=== PATIENT | female | born 2000 | race Hispanic/Latino ===

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

== ENCOUNTER 2022-01-08 14:56 | Outpatient (CLI) | payer OTHER, SELFPAY ==
[2022-01-08 15:32] LABS: Basophils Percent Auto 0.6 % (0.2-1.2); Eosinophils Absolute Auto 0.1 K/mm3 (0-0.3); Hematocrit 44.3 % (37.0-47.0); Hemoglobin 14.6 g/dL (12.0-15.0); Immature Granulocyte Absolute 0.02 K/mm3 (0.00-0.031); Immature Granulocyte Percent A 0.3 % (0-0.5); Lymphocytes Absolute Auto 1.74 K/mm3 (0.9-3.2); Lymphocytes Percent Auto 26.5 % (18.3-44.2); Mean Corpuscular Hemoglobin 28.7 pg (26-34); Mean Corpuscular Volume 87.2 fl (80-100); Mean Platelet Volume 10.2 fl (7.4-10.4); Monocytes Absolute Auto 0.4 K/mm3 (0.1-0.6); Monocytes Percent Auto 6.4 % (2.6-8.5); Neutrophils Absolute Auto 4.2 K/mm3 (1.3-6.7); Neutrophils Percent Auto 64.2 % (45.5-73.1); Platelet Count Result 292 k/mm3 (150-375); Red Blood Count 5.08 M/mm3 (4.2-5.4); Red Cell Distribution Width 12.1 % (11.5-14.5); White Blood Count 6.6 K/mm3 (4.5-10.0)
[2022-01-08 15:42] LABS: Alanine Aminotransferase 14 U/L (4-35); Albumin Level 4.4 g/dL (3.5-5.1); Alkaline Phosphatase 53 U/L (38-126); Anion Gap 8 mmol/L (8-16); Aspartate Amino Transferase 22 U/L (14-36); Bilirubin,Total 0.6 mg/dL (0.2-1.3); Blood Urea Nitrogen 14 mg/dL (7-17); Calcium 9.1 mg/dL (8.4-10.2); Carbon Dioxide 25 mmol/L (22-30); Chloride 106 mmol/L (98-107); Cholesterol 177 mg/dL (0-200); Estimated Glomerular Filt Rate > 60; Glucose 90 mg/dL (65-110); HDL Direct 64 mg/dL; Potassium 4.3 mmol/L (3.4-5.0); Sodium 139 mmol/L (137-145); Triglycerides 54 mg/dL (<150)
[2022-01-08 15:55] LABS: LDL Cholesterol Direct 82 mg/dL
[2022-01-08 16:11] LABS: Hemoglobin A1C 4.5 % (<5.7)
[2022-01-08 16:15] LABS: Vitamin D 25 Hydroxy 24.4 ng/mL
== END 2022-01-08 14:57 | disposition home or self-care (01) ==
LOC: ANHLAB 15:02
PROVIDERS: PCP Family Medicine
DX: Z13.228 Encounter for screening for other metabolic disorders (principal); Z13.0 Encounter for screening for diseases of the blood and blood-forming organs and certain disorders involving the immune mechanism; Z13.220 Encounter for screening for lipoid disorders; Z13.1 Encounter for screening for diabetes mellitus; E55.9 Vitamin D deficiency, unspecified; E61.1 Iron deficiency
CPT/HCPCS: 36415; 80053; 80061; 82306; 82728; 83036; 85025

== ENCOUNTER → 2022-03-17 12:33 | Outpatient (CLI) | payer OTHER, SELFPAY ==
--- NOTE | ~2022-03-17 | US_ITS ---
EXAMINATION: US transvaginal DATE: 03/17/2022 13:04 INDICATION: Verify IUD placement Comparison:No prior studies for comparison. TECHNIQUE: Multiple transabdominal and endovaginal sonographic images of the pelvis performed. FINDINGS: The uterus measures 5.4 x 2.2 x 3.1 cm. IUD is low lying, located in the cervix. The endome trial complex measures 4 mm. The right ovary measures 1.9 x 1.3 x 1.7 cm and the left ovary measures 2.7 x 1.4 x 2.3 cm. There ar e small follicles in each ovary. Normal doppler signal in both ovaries. There is no free fluid in the pelvis. There are no abnormal masses seen on either side. IMPRESSION: 1. Low-lying IUD placement in the cervix. Reviewed, dictated and finalized at location B.
== END ==
PROVIDERS: PCP Nurse Practitioner; Visit Provider Nurse Practitioner
DX: Z30.431 Encounter for routine checking of intrauterine contraceptive device (principal)
CPT/HCPCS: 76830

== ENCOUNTER 2022-05-24 13:47 | Emergency (ER) | payer OTHER, SELFPAY ==
--- NOTE | ~2022-05-24 | XR_ITS ---
XR hand RT min 3V 05/24/2022 15:45 INDICATION: Right hand pain PROCEDURE: 3 views right hand COMPARISON: No prior studies for comparison. FINDINGS: Fracture, dislocation or subluxation is not identified. The soft tissues appear within norm al limits. No foreign bodies are identified. IMPRESSION: 1: NO ACUTE BONE OR JOINT ABNORMALITY IDENTIFIED. Reviewed, dictated and finalized at location A.
--- NOTE | 2022-05-24 14:35 | ED.UPPEXIN ---
HPI - Extremity Injury (Upper) General Chief Complaint: Extremity Injury, Upper <Ron Aggarwal APRN - Last Filed: 05/24/22 17:06> Stated Complaint: rt hand pain <Ron Aggarwal APRN - Last Filed: 05/24/22 17:06> Time Seen by Provider: 05/24/22 14:36 <Ron Aggarwal APRN - Last Filed: 05/24/22 17:06> Source: patient <Ron Aggarwal APRN - Last Filed: 05/24/22 17:06> RN notes reviewed and old records reviewed <Rebeca [place] APRN - Last Filed: 05/24/22 18:22> Mode of arrival: ambulatory <Ron Aggarwal APRN - Last Filed: 05/24/22 17:06> Limitations: no limitations <Ron Aggarwal APRN - Last Filed: 05/24/22 17:06> History of Present Illness HPI narrative: Ms. Das is a 22-year-old female patient presenting to the clinic today with complaints of right hand pain. She reports she punched a wall 2 days ago because she was angry. She reports she is having pain over the right fifth metatarsal/knuckle <Ron Aggarwal APRN - Last Filed: 05/24/22 17:06> Related Data Home Medications: Home Medications Medication Instructions Recorded Confirmed escitalopram oxalate 10 mg tablet 10 mg PO DAILY 05/24/22 05/24/22 etonogestrel 68 mg subdermal 1 implant subdermal ONCE 05/24/22 05/24/22 implant (Nexplanon) <Ron Aggarwal APRN - Last Filed: 05/24/22 17:06> Allergies/Adverse Reactions: Allergies Allergy/AdvReac Type Severity Reaction Status Date / Time No Known Allergies Allergy Verified 05/24/22 14:48 <Ron Aggarwal APRN - Last Filed: 05/24/22 17:06> Review of Systems Review of Systems: Pertinent positives per HPI. Patient denies any fever, chills, rash, headache, visual changes, dizziness, cough, runny nose, sore throat, shortness of breath, chest pain, palpitations, nausea, vomiting, diarrhea, constipation, abdominal pain, or any urinary issues. <Ron Aggarwal APRN - Last Filed: 05/24/22 17:06> [facility] Past Medical History Medical History: Medical History Anxiety Depression Left wrist fracture Seasonal allergies <Ron Aggarwal APRN - Last Filed: 05/24/22 17:06> Surgical History Surgical History: Surgical History History of tonsillectomy <Ron Aggarwal APRN - Last Filed: 05/24/22 17:06> Social History Social History: Social History Smoking status: Never smoker Gender identity (if verbalized by the patient): Female <Ron Aggarwal APRN - Last Filed: 05/24/22 17:06> Comments At the time of my signature, I reviewed and agree with the nursing past medical, surgical, social, and family history. There is no relevant family history pertinent to the patient complaint. <Ron Aggarwal APRN - Last Filed: 05/24/22 17:06> Exam Narrative: General: Well-developed, well nourished, in no apparent distress Head: Normocephalic, atraumatic. Cardio: Regular rate and rhythm, s1 and s2 normal, no murmur appreciated. Resp: Clear to auscultation bilaterally, no rhonchi, rales, wheezing or rubs. Musculoskeletal: No deformity, mildly tender to palpation over the fifth knuckle (PIP JOINT) of the right hand, grossly normal range of motion, muscle strength strong and equal, peripheral pulse strong, no edema, no cyanosis, normal gait and station <Ron Aggarwal APRN - Last Filed: 05/24/22 17:06> Course Course Emergency Course: Portions of this record may have been created with voice recognition software. <Ron Aggarwal, [employer] - Last Filed: 05/24/22 17:06> Portions of this record may have been created with voice recognition software. Discharge instructions reviewed with patient and mom, as well as provided in writing p
[2022-05-24 15:00] VITALS: BP 115/64; PULSE 69; RESP 14; TEMP 36.6; O2SAT 100
--- NOTE | 2022-05-24 15:17 | PC.NURSE ---
Pt went to [facility] for x-ray, nurse report given to KATY Mckay.
--- NOTE | 2022-05-24 16:13 | PC.NURSE ---
1536 Patient arrived from [place] for xray of the right hand. Patient awake, and alert-complains of tenderness at 5th MCP joint right hand. No swelling or ecchymosis noted.
== END 2022-05-24 16:12 | disposition home or self-care (01) ==
PROVIDERS: Emergency Provider Nurse Practitioner Family
DX: S60.051A Contusion of right little finger without damage to nail, initial encounter (principal); S60.221A Contusion of right hand, initial encounter; W22.09XA Striking against other stationary object, initial encounter; F41.9 Anxiety disorder, unspecified; F32.A Depression, unspecified
CPT/HCPCS: 73130; 99213; G0463

== ENCOUNTER 2023-03-19 09:38 | Outpatient (CLI) | payer OTHER, SELFPAY ==
[2023-03-19 09:56] LABS: Basophils Absolute Auto 0.1 K/mm3 (0.0-0.1); Basophils Percent Auto 0.9 % (0.2-1.2); Eosinophils Absolute Auto 0.2 K/mm3 (0-0.3); Eosinophils Percent Auto 2.8 % (0-4.4); Hematocrit 46.6 % (37.0-47.0); Hemoglobin 15.1 g/dL (12.0-15.0); Immature Granulocyte Absolute 0.03 K/mm3 (0.00-0.031); Immature Granulocyte Percent A 0.4 % (0-0.5); Lymphocytes Absolute Auto 2.61 K/mm3 (0.9-3.2); Lymphocytes Percent Auto 33.6 % (18.3-44.2); Mean Corpuscular HGB Conc 32.4 g/dl (32-36); Mean Corpuscular Hemoglobin 28.5 pg (26-34); Mean Corpuscular Volume 87.9 fl (80-100); Mean Platelet Volume 10.2 fl (7.4-10.4); Monocytes Absolute Auto 0.6 K/mm3 (0.1-0.6); Monocytes Percent Auto 8.1 % (2.6-8.5); Neutrophils Absolute Auto 4.2 K/mm3 (1.3-6.7); Neutrophils Percent Auto 54.2 % (45.5-73.1); Platelet Count Result 302 k/mm3 (150-375); Red Cell Distribution Width 12.5 % (11.5-14.5); White Blood Count 7.8 K/mm3 (4.5-10.0)
[2023-03-19 10:11] LABS: Alanine Aminotransferase 26 U/L (6-35); Albumin Level 4.7 g/dL (3.5-5.1); Alkaline Phosphatase 66 U/L (38-126); Anion Gap 7 mmol/L (8-16); Aspartate Amino Transferase 31 U/L (14-36); Bilirubin,Total 0.7 mg/dL (0.2-1.3); Blood Urea Nitrogen 12 mg/dL (7-17); Calcium 9.1 mg/dL (8.4-10.2); Carbon Dioxide 26 mmol/L (22-30); Chloride 105 mmol/L (98-107); Estimated Glomerular Filt Rate > 60; Glucose 92 mg/dL (65-110); Potassium 3.8 mmol/L (3.4-5.0); Sodium 138 mmol/L (137-145)
[2023-03-19 10:36] LABS: Free T4 Free Thyroxine 1.12 ng/mL (0.78-2.19)
[2023-03-19 10:55] LABS: Hemoglobin A1C 4.8 % (<5.7)
[2023-03-25 02:40] LABS: Thyroid Peroxidase Antibodies 1 IU/mL (<9)
== END 2023-03-19 09:39 | disposition home or self-care (01) ==
LOC: ANHLAB 09:39
PROVIDERS: PCP Family Medicine; Visit Provider Family Medicine
DX: U09.9 Post COVID-19 condition, unspecified (principal); E04.9 Nontoxic goiter, unspecified; R63.5 Abnormal weight gain; R53.82 Chronic fatigue, unspecified; Z83.3 Family history of diabetes mellitus
CPT/HCPCS: 36415; 80053; 83036; 84439; 84443; 84480; 85025; 86376

== ENCOUNTER 2023-10-01 11:48 | Emergency (ER) | payer OTHER, SELFPAY ==
[2023-10-01 12:01] VITALS: BP 105/73; PULSE 85; RESP 18; TEMP 36.4; O2SAT 100
--- NOTE | 2023-10-01 12:54 | ED.URI ---
HPI - URI/Sore Throat General Chief Complaint: Upper Respiratory Infection Stated Complaint: Sore Throat Time Seen by Provider: 10/01/23 12:46 Source: patient and RN notes reviewed Mode of arrival: ambulatory Limitations: no limitations History of Present Illness HPI Narrative: Patient presents today complaining of sore throat, headache, body aches, sweats, chills since yesterday. Denies cough. She has been taking DayQuil and NyQuil with relief and currently rates her pain 7/10. States that she had COVID a few weeks ago that was contracted from her mother. Related Data Home Medications Medication Instructions Recorded Confirmed duloxetine 30 mg capsule,delayed 30 mg PO DAILY 10/01/23 10/01/23 release Allergies Allergy/AdvReac Type Severity Reaction Status Date / Time No Known Allergies Allergy Verified 10/01/23 12:01 Review of Systems Review of Systems: CONSTITUTIONAL: + body aches, chills, sweats EYES: Denies visual changes, redness, or discharge. ENT: Denies rhinorrhea, congestion, or otalgia.+ sore throat CARDIOVASCULAR: Denies chest pain, palpitations, or edema. RESPIRATORY: Denies cough or dyspnea. GASTROINTESTINAL: Denies abdominal pain, nausea, vomiting, or diarrhea. GENITOURINARY: Denies dysuria or hematuria. SKIN: Denies rash, itching, or wounds. MUSCULOSKELETAL: Denies back pain, joint pain, or myalgia. NEUROLOGIC: Denies numbness, tingling, or weakness.+ headache PSYCH: Denies depression or anxiety. PMFSH Past Medical History Medical History Acute cholecystitis due to biliary calculus Anxiety Depression Left wrist fracture Seasonal allergies Surgical History Surgical History History of cholecystectomy History of tonsillectomy Family History Family History Other Asthma Cancer Diabetes mellitus Hypertension Social History Social History Social History: Single Smoking status: Never smoker Second hand tobacco smoke exposure: No Alcohol intake: never Substance use: current Substance use type: marijuana Lack of Transportation: No Lack of Food: Never True Current Housing: I Have Housing Concerned About Future Housing: No Difficulty Paying Gas/Electric Bills: No Difficulty Paying for Meds: No Currently Unemployed: YES Education: Decline to Answer Difficulty w/ Childcare or Family Care: No Living arrangements: with family Occupation/Education: student Gender identity (if verbalized by the patient): Female Sexual Orientation (if Verbalized by the Patient): Straight or Heterosexual Comments At time of signature, I have reviewed and agree with nursing past medical, surgical, social and family history unless otherwise noted. Please see nursing chart for further information. There is no relevant family history pertinent to the presenting complaint Exam Narrative: GENERAL: Well-appearing, well-nourished, and in no acute distress. HEAD: Normocephalic, atraumatic. EYES: EOMI. No redness or drainage. Conjunctivae normal. ENT: Mucous membranes pink and moist. Nares clear. No rhinorrhea. TMs normal bilaterally. Throat severely erythematous posteriorly without edema or exudate. Uvula midline. NECK: Normal AROM. Supple. No lymphadenopathy. CHEST: No respiratory distress. Clear to auscultation. HEART: Regular rate and rhythm. No murmur appreciated. EXTREMITIES: Normal range of motion. No edema. SKIN: Warm, dry, no rash. Capillary refill normal. Normal skin turgor. NEURO: No focal deficits. Alert and oriented x3. Gait steady. PSYCH: Normal affect. No signs of depression or anxiety. Course Course Level of Care: Express Care Visit Vital Signs Vital signs: Vital Signs Temperature 97.
== END 2023-10-01 13:05 | disposition home or self-care (01) ==
PROVIDERS: Emergency Provider Nurse Practitioner; PCP Family Medicine
DX: J06.9 Acute upper respiratory infection, unspecified (principal); F41.9 Anxiety disorder, unspecified; F32.A Depression, unspecified
CPT/HCPCS: 87081; 87880; 99213; G0463

== ENCOUNTER 2023-11-22 11:13 | Outpatient (CLI) | payer OTHER, SELFPAY ==
[2023-11-22 12:26] LABS: Hemoglobin A1C 4.9 % (<5.7)
[2023-11-22 12:43] LABS: Free T4 Free Thyroxine 1.03 ng/mL (0.78-2.19)
[2023-11-26 03:56] LABS: DHEA-Sulfate 221 mcg/dL (51-321)
[2023-11-26 07:08] LABS: Insulin Level Total 4.5 uIU/mL (<=18.4); Prolactin 12.7 ng/mL (***)
[2023-11-29 12:06] LABS: Testosterone Free 5.4 pg/mL (0.2-5.0)
== END 2023-11-22 11:14 | disposition home or self-care (01) ==
LOC: ANHLAB 11:16
PROVIDERS: PCP Family Medicine; Visit Provider Nurse Practitioner
DX: N92.6 Irregular menstruation, unspecified (principal)
CPT/HCPCS: 36415; 82627; 83036; 83498; 83525; 84146; 84402; 84439; 84443

== ENCOUNTER 2024-01-27 13:52 | Outpatient (CLI) | payer OTHER, SELFPAY ==
[2024-01-27 14:38] LABS: Alanine Aminotransferase 17 U/L (6-35); Albumin Level 4.4 g/dL (3.5-5.1); Alkaline Phosphatase 68 U/L (38-126); Anion Gap 6 mmol/L (4-12); Aspartate Amino Transferase 25 U/L (14-36); Bilirubin,Total 0.7 mg/dL (0.2-1.3); Blood Urea Nitrogen 9 mg/dL (7-17); Calcium 9.4 mg/dL (8.4-10.2); Carbon Dioxide 26 mmol/L (22-30); Chloride 105 mmol/L (98-107); Estimated Glomerular Filt Rate > 60; Glucose 92 mg/dL (65-110); Potassium 4.1 mmol/L (3.4-5.0); Sodium 137 mmol/L (137-145)
== END 2024-01-27 13:53 | disposition home or self-care (01) ==
LOC: ANHLAB 13:56
PROVIDERS: PCP Family Medicine; Visit Provider Nurse Practitioner
DX: Z13.9 Encounter for screening, unspecified (principal)
CPT/HCPCS: 36415; 80053

== ENCOUNTER 2024-02-18 15:44 | Emergency (ER) | payer OTHER, SELFPAY ==
--- NOTE | ~2024-02-18 | CT_ITS ---
EXAMINATION: CT abdomen pelvis w con DATE: 02/18/2024 18:29 INDICATION: Abdominal pain and vomiting TECHNIQUE: Computed tomography (CT) of the abdomen and pelvis was performed with 100 mL Omnipaque-350 intravenous contrast. Automated exposure control and iterative reconstruction technique were employe d. The dose-length product was 477.20 mGy-cm. COMPARISON: None FINDINGS: Lung bases are clear. Heart size is normal. No pericardial or pleural effusion. Again seen is a regio n of focal hepatic steatosis at the ligamentum teres. Cholecystectomy clips the gallbladder fossa. Sp colleen, pancreas, bilateral adrenal glands and kidneys are normal. There is fatty infiltration of the c olonic wall likely related to patient body habitus. Small bowel and appendix are normal. 2.6 cm right ovarian cyst. Left ovary, uterus and bladder are unremarkable. Minimal likely physiologic free fluid at the cul-de-sac. No pathologically enlarged abdominal or pelvic lymphadenopathy. Bones are unremar kable. IMPRESSION: 1. 2.5 cm right ovarian cyst and minimal likely physiologic free fluid in the cul-de-sac. No acute in tra-abdominal/pelvic process. Reviewed, dictated and finalized at location A. IMPRESSION: 1. 2.5 cm right ovarian cyst and minimal likely physiologic free fluid in the c ul-de-sac. No acute intra-abdominal/pelvic process.
[2024-02-18 15:54] VITALS: BP 115/71; PULSE 100; RESP 20; TEMP 36.2; O2SAT 100
[2024-02-18 16:52] LABS: Basophils Percent Auto 0.4 % (0.2-1.2); Eosinophils Absolute Auto 0.1 K/mm3 (0-0.3); Eosinophils Percent Auto 0.7 % (0-4.4); Hematocrit 44.3 % (37.0-47.0); Hemoglobin 14.6 g/dL (12.0-15.0); Immature Granulocyte Absolute 0.02 K/mm3 (0.00-0.031); Immature Granulocyte Percent A 0.2 % (0-0.5); Lymphocytes Absolute Auto 1.22 K/mm3 (0.9-3.2); Lymphocytes Percent Auto 12.7 % (18.3-44.2); Mean Corpuscular Volume 84.9 fl (80-100); Mean Platelet Volume 10.3 fl (7.4-10.4); Monocytes Absolute Auto 0.5 K/mm3 (0.1-0.6); Monocytes Percent Auto 4.7 % (2.6-8.5); Neutrophils Absolute Auto 7.8 K/mm3 (1.3-6.7); Neutrophils Percent Auto 81.3 % (45.5-73.1); Platelet Count Result 291 k/mm3 (150-375); Red Blood Count 5.22 M/mm3 (4.2-5.4); Red Cell Distribution Width 12.3 % (11.5-14.5); White Blood Count 9.6 K/mm3 (4.5-10.0)
[2024-02-18 17:00] LABS: Appearance Urine Clear (Clear); Bacteria Urine Rare /hpf; Bilirubin Urine 1+ (Negative); Blood Urine Negative (Negative); Color Urine Dark Yellow (Yellow); Glucose Urine UA Negative (Negative); Ketones Urine 3+ mg/dL (Negative); Leukocyte Esterase Ur Negative LEU/UL (Negative); Nitrate Urine Negative (Negative); Non Pathogenic Casts 0-2; Protein Urine Trace mg/dL (Negative); RBC Urine 0-2 /hpf (0-2); Specific Grav Ur 1.029 (1.001-1.035); Squamous Epithelial Cell Urine Few /hpf (Few); WBC Urine 0-5 /hpf (0-3); pH Urine 5.5 (5.0-9.0)
[2024-02-18 17:02] LABS: Add Urine Microscopic? YES; Alanine Aminotransferase 17 U/L (6-35); Albumin Level 4.5 g/dL (3.5-5.1); Alkaline Phosphatase 67 U/L (38-126); Anion Gap 6 mmol/L (4-12); Aspartate Amino Transferase 23 U/L (14-36); Bilirubin,Total 0.8 mg/dL (0.2-1.3); Blood Urea Nitrogen 7 mg/dL (7-17); Calcium 9.6 mg/dL (8.4-10.2); Carbon Dioxide 24 mmol/L (22-30); Chloride 105 mmol/L (98-107); Estimated CRCL calculation 96 ml/min; Estimated Glomerular Filt Rate > 60; Glucose 90 mg/dL (65-110); Lipase 71 U/L (23-300); Potassium 4.1 mmol/L (3.4-5.0); Sodium 135 mmol/L (137-145)
[2024-02-18] MEDS: SODIUM CHLORIDE 0.9% IV 1,000 ML 999 ML IV CONT (17:25)
[2024-02-18] MEDS: ONDANSETRON INJ 4 MG/2 ML VIAL IV PUSH (17:26)
[2024-02-18] MEDS: FAMOTIDINE 20 MG/2 ML VIAL IV PUSH (17:28)
[2024-02-18 17:47] LABS: Pregnancy On Board Control Positive; Urine Pregnancy Test Negative
--- NOTE | 2024-02-18 17:57 | ED.ABDPAIN ---
HPI - Abdominal Pain General Chief Complaint: Abdominal Pain Stated Complaint: Epigastric pain Time Seen by Provider: 02/18/24 17:11 Source: patient Mode of arrival: ambulatory Limitations: no limitations History of Present Illness HPI narrative: This is a 24-year-old female that presents to the emergency department for epigastric abdominal pain. Ongoing over the last couple of days. Associated with nausea and vomiting. Reports the pain is burning in nature. Does also report some diarrhea. Denies fevers or dysuria. Related Data Home Medications Medication Instructions Recorded Confirmed duloxetine 30 mg capsule,delayed 30 mg PO DAILY 10/01/23 10/01/23 release Allergies Allergy/AdvReac Type Severity Reaction Status Date / Time No Known Allergies Allergy Verified 02/18/24 16:04 Review of Systems Review of Systems: CONSTITUTIONAL: Denies fever GASTROINTESTINAL: Reports abdominal pain, nausea, vomiting, and diarrhea. GENITOURINARY: Denies dysuria All systems reviewed & are unremarkable except as noted in HPI and below PMFSH Past Medical History Medical History Acute cholecystitis due to biliary calculus Anxiety Depression Left wrist fracture Seasonal allergies Surgical History Surgical History History of cholecystectomy History of tonsillectomy Family History Family History Other Asthma Cancer Diabetes mellitus Hypertension Social History Social History Social History: Single Smoking status: Never smoker Second hand tobacco smoke exposure: No Alcohol intake: never Substance use: current Substance use type: marijuana Lack of Transportation: No Lack of Food: Never True Current Housing: I Have Housing Concerned About Future Housing: No Difficulty Paying Gas/Electric Bills: No Difficulty Paying for Meds: No Currently Unemployed: YES Education: Decline to Answer Difficulty w/ Childcare or Family Care: No Living arrangements: with family Occupation/Education: student Gender identity (if verbalized by the patient): Female Sexual Orientation (if Verbalized by the Patient): Straight or Heterosexual Exam Narrative: GENERAL: Well-appearing, well-nourished, and in no acute distress. HEAD: Normocephalic, atraumatic. EYES: EOMI. CHEST: Clear to auscultation. No respiratory distress. No wheezes rales or rhonchi HEART: Regular rate and rhythm. No murmur heard. Normal peripheral pulses. ABDOMEN: Soft, nondistended, normal active bowel sounds. Tender to palpation in the epigastrium, without guarding EXTREMITIES: Normal range of motion. No edema. SKIN: Warm, dry, no rash. NEURO: No focal deficits. Alert and oriented x3. PSYCH: Normal mood and affect Course Course Emergency Course: Patient updated on workup and agrees with plan of care Vital Signs Vital signs: Vital Signs Temperature 97.2 F L 02/18/24 15:54 Pulse Rate 100 02/18/24 15:54 Respiratory Rate 20 02/18/24 15:54 Blood Pressure 115/71 02/18/24 15:54 Pulse Oximetry 100 02/18/24 15:54 Oxygen Delivery Room Air 02/18/24 15:54 Temperature 97.2 F L 02/18/24 15:54 Pulse Rate 100 02/18/24 15:54 Respiratory Rate 20 02/18/24 15:54 Blood Pressure 115/71 02/18/24 15:54 Pulse Oximetry 100 02/18/24 15:54 Oxygen Delivery Room Air 02/18/24 15:54 MDM - Abdominal Pain MDM Narrative Medical decision making narrative: Patient presents to the emergency department for epigastric abdominal pain, nausea and vomiting. She is afebrile and nontoxic appearing. Her vitals are stable. Cbc without leukocytosis. Metabolic panel and lipase without concerning findings. UA without evidence of infection. CT abdomen and pelvis s
[2024-02-18 19:41] VITALS: BP 126/74; PULSE 67; RESP 16; TEMP 36.6; O2SAT 98
== END 2024-02-18 19:42 | disposition home or self-care (01) ==
PROVIDERS: Physician Assistant; Emergency Provider Physician Assistant; PCP Family Medicine
DX: R10.13 Epigastric pain (principal); N83.201 Unspecified ovarian cyst, right side; Z90.49 Acquired absence of other specified parts of digestive tract
CPT/HCPCS: 36415; 74177; 80053; 81001; 81025; 83690; 85025; 96361; 96374; 96375; 99284; J2405; J7030; Q9967

== ENCOUNTER 2024-05-04 11:12 | Outpatient (CLI) | payer OTHER, SELFPAY ==
--- NOTE | ~2024-05-04 | US_ITS ---
EXAMINATION: US transvaginal INDICATION: Right ovarian cyst Comparison:03/17/2021 TECHNIQUE: Multiple transabdominal and endovaginal sonographic images of the pelvis performed. FINDINGS: The uterus measures 5.1 x 3.1 x 3.2 cm. The endometrial complex measures 10 mm. The right ovary measures 1.8 x 1.3 x 1.7 cm and the left ovary measures 3 x 1.3 x 1.3 cm. There are small follicles in each ovary. Normal doppler signal in both ovaries. There is free fluid in the pelvis. There are no abnormal masses seen on either side. IMPRESSION: 1. Unremarkable pelvic ultrasound. Reviewed, dictated and finalized at location B.
== END 2024-05-04 11:13 ==
LOC: MICIMG 11:13
PROVIDERS: PCP Family Medicine; Visit Provider Nurse Practitioner
DX: N83.201 Unspecified ovarian cyst, right side (principal)
CPT/HCPCS: 76830

== ENCOUNTER 2024-10-09 09:14 | Emergency (ER) | payer OTHER, SELFPAY ==
--- NOTE | 2024-10-09 09:27 | ED_ITS ---
HPI - URI/Sore Throat General Chief Complaint: Upper Respiratory Infection Stated Complaint: flu-like symptoms Time Seen by Provider: 10/09/24 09:45 Source: patient Mode of arrival: ambulatory Limitations: no limitations History of Present Illness HPI Narrative: Injury is a 24-year-old female patient presenting to the clinic today with complaints of flu-like symptoms x3 days. She reports she has been sneezing, c oughing, sore throat, headache, and feeling hot with sweats. Denies any chest pain or shortness of breath. Cough is nonproductive. MD elicited complaint: sore throat and nasal congestion Related Data Home Medications ?Medication ?Instructions ?Recorded ?Confirmed ?Last Taken ?Type duloxetine 30 mg capsule,delayed 30 mg PO DAILY 10/01/23 08/01/24 Unknown History release spironolactone 100 mg tablet 100 mg PO DAILY 06/27/24 08/01/24 Unknown History Allergies Allergy/AdvReac Type Severity Reaction Status Date / Time No Known Allergies Allergy Verified 10/09/24 09:55 Review of Systems Review of Systems: Pertinent positives per HPI. Patient denies any fever, chills, rash, visual changes, dizziness, shortness of breath, chest pain, palpitations, nausea, vomiting, diarrhea, constipation, abdominal pain, or any urinary issues. [facility] Past Medical History Medical History Acute cholecystitis due to biliary calculus Anxiety Depression Left wrist fracture Seasonal allergies Surgical History Surgical History History of cholecystectomy History of tonsillectomy Family History Family History Other Asthma Cancer Diabetes mellitus Hypertension Social History Social History Social History: Single Smoking status: Never smoker Second hand tobacco smoke exposure: No Alcohol intake: never Substance use: current Substance use type: marijuana Lack of Transportation: No Lack of Food: Never True Current Housing: I Have Housing Concerned About Future Housing: No Difficulty Paying Gas/Electric Bills: No Difficulty Paying for Meds: No Currently Unemployed: YES Education: Decline to Answer Difficulty w/ Childcare or Family Care: No Living arrangements: with family Occupation/Education: student Gender identity (if verbalized by the patient): Female Sexual Orientation (if Verbalized by the Patient): Straight or Heterosexual Comments At the time of my signature, I reviewed and agree with the nursing past medical, surgical, social, and family history. There is no relevant family history pertinent to the patient complaint. Exam Narrative: General: Well-developed, well nourished, in no apparent distress Head: Normocephalic, atraumatic Eyes: Pupils equally round and reactive to light bilaterally, EOM intact, sclera and conjunctive clear, no discharge, lids normal Ears: TMs intact and clear, ear canals clear, no drainage, grossly hearing normal. Nose: Nares patent, clear nasal discharge, no inflammation, no sinus tenderness. Mouth: Oral pharynx mildly red without lesions or masses, good dentition, MMM. Neck: Supple, trachea midline, no enlargement of anterior or posterior cervical nodes, no thyroid masses or goiter palpable. Cardio: Regular rate and rhythm, s1 and s2 normal, no murmur appreciated. Resp: Clear to auscultation bilaterally, no rhonchi, rales, wheezing or rubs Course Course Emergency Course: Portions of this record may have been created with voice recognition software. Level of Care: Express Care Visit Vital Signs Vital signs: Vital Signs Temperature 36.6 C 10/09/24 09:41 Pulse Rate 87 10/09/24 09:41 Respiratory Rate 18 10/09/24 09:41 Blood Pressure 108/77 10/09/24 09:41 Pulse Oximetry 97 10/09/24 09:41 Oxygen Delivery Room Air 10/09/24 09:41 Temperature 36.6 C 10/09/24 09:41 Pulse Rate 87 10/09/24 09:41 Respiratory Rate 18 10/09/24 09:41 Blood Pressure 108/77 10/09/24 09:41 Pulse Oximetry 97 10/09/24 09:41 Oxygen Delivery Room Air 10/09/24 09:41 Vital signs reviewed MDM - URI/Sore Throat MDM Narrative Medical decision making narrative: At the time of visit patient is resting comfortably on the exam table. Patient appears to be nontoxic. Labs: COVID, influenza, and strep test were all performed. All testing was negative in the clinic today. We will send strep for culture Plan: I suspect patient has URI/pharyngitis/viral syndrome. Supportive measures were discussed with the patient and they voiced understanding discharge instructions and agrees to treatment plan. Return precautions reviewed Differential Diagnosis Differential diagnosis: Likely upper respiratory infection, otitis media, sinusitis, viral infection, bronchitis, influenza, pharyngitis and other (COVID) Lab Data Labs: Lab Results 10/09/24 Range/Units 10:01 POC Grp A Strep Screen Negative (Negative) Discharge Plan Discharge Clinical Impression: Viral infection Upper respiratory infection Qualifiers: URI type: unspecified URI Qualified Code(s): J06.9 - Acute upper respiratory infection, unspecified Pharyngitis Qualifiers: Pharyngitis/tonsillitis etiology: unspecified etiology Qualified Code(s): J02.9 - Acute pharyngitis, unspecified Patient Disposition: Home, Self-Care Condition: Stable Instructions: Antibiotic Form, Pharyngitis (ED), Viral Syndrome (ED), Cold Symptoms (ED) Additional Instructions: COVID, influenza, and strep test were all negative in the clinic today. We will send strep for culture if this comes back positive we will contact you in place you on antibiotics at that time. May take DayQuil/NyQuil for cold/flu symptoms Increase fluids and stay well hydrated Tylenol/motrin for pain/fever Flonase and OTC antihistamines as directed Vicks vapor rub to open sinuses Sinus rinses for congestion Cepacol spray, cough drops, throat lozenges, warm tea with honey/lemon, gargle salt water to soothe throat BRAT diet for diarrhea Clear liquids x 24 hours then advance as tolerated for nausea/vomiting Go to the ED if you develop a worsening in your condition- high fever not controlled by Tylenol or Motrin, dehydration, weakness, lethargy, shortness of breath, or chest pain. Follow up with your PCP in 3-5 days if symptoms persist. Patient Language: Bhutanese Prescriptions: No Action duloxetine 30 mg capsule,delayed release(DR/EC) 30 mg PO DAILY spironolactone 100 mg tablet 100 mg PO DAILY dextroamphetamine-amphetamine [Adderall] 10 mg tablet 10 mg PO DAILY Qty: 30 0RF Follow-up/Referrals: Lalitha Bolaños MD [Primary Care Provider] - Time of Disposition: 10:06 Quality NIHSS Nursing Documentation ED NIHSS nursing documentation: reviewed/agree
[2024-10-09 09:41] VITALS: BP 108/77; PULSE 87; RESP 18; TEMP 36.6; O2SAT 97
[2024-10-09 10:04] LABS: EDSTREPNEGPOS1 Negative (Negative)
[2024-10-09 10:09] LABS: EDCOVIDSCREEN Negative (Negative); EDINFLUASCREEN Negative (Negative); EDINFLUBSCREEN Negative (Negative)
--- OUTSIDE RECORDS SUMMARY | 2024-10-16 23:11 | XMS_ITS ---
Author Organization Unknown Medications Medication Instructions Effective Dates (start - stop) Status ondansetron 4 MG Disintegrat ing Oral Tablet - Completed duloxetine 30 MG Delayed Rel ease Oral Capsule - Completed sertraline 25 MG Oral Tablet [id number] 0:00:00Z - Completed citric acid 0.01 MG/MG / lac tic acid 0.018 MG/MG / potassium bitartrate 0.004 MG/MG Vaginal Gel [Phexxi] - Completed spironolactone 100 MG Oral Tablet 2024-0400:00:00Z - Completed duloxetine 30 MG Delayed Rel ease Oral Capsule - Completed spironolactone 100 MG Oral Tablet 2023-11T00:00:00Z - Completed duloxetine 30 MG Delayed Rel ease Oral Capsule - Completed duloxetine 30 MG Delayed Rel ease Oral Capsule - Completed duloxetine 30 MG Delayed Rel ease Oral Capsule - Completed Patient Care team information Name Category Status Period Participants - - Proposed period not known -
== END 2024-10-09 10:15 | disposition home or self-care (01) ==
PROVIDERS: Emergency Provider Nurse Practitioner Family; PCP Family Medicine
DX: B34.9 Viral infection, unspecified (principal); J06.9 Acute upper respiratory infection, unspecified; J02.9 Acute pharyngitis, unspecified; Z20.822 Contact with and (suspected) exposure to COVID-19; F12.90 Cannabis use, unspecified, uncomplicated
CPT/HCPCS: 87081; 87426; 87804; 87880; 99213; G0463

== ENCOUNTER 2024-12-06 13:35 | Outpatient (CLI) | payer OTHER, SELFPAY ==
[2024-12-06 14:23] LABS: Alanine Aminotransferase 18 U/L (6-35); Albumin Level 4.2 g/dL (3.5-5.1); Alkaline Phosphatase 58 U/L (38-126); Anion Gap 11 mmol/L (4-12); Aspartate Amino Transferase 24 U/L (14-36); Bilirubin,Total 0.6 mg/dL (0.2-1.3); Blood Urea Nitrogen 10 mg/dL (7-17); Calcium 9.3 mg/dL (8.4-10.2); Carbon Dioxide 23 mmol/L (22-30); Chloride 105 mmol/L (98-107); Cholesterol 173 mg/dL (0-200); Estimated Glomerular Filt Rate > 60; Glucose 86 mg/dL (65-110); HDL Direct 64 mg/dL; Potassium 4.3 mmol/L (3.4-5.0); Sodium 139 mmol/L (137-145); Triglycerides 78 mg/dL (<150)
[2024-12-06 14:34] LABS: LDL Cholesterol Direct 71 mg/dL
--- OUTSIDE RECORDS SUMMARY | 2024-12-06 15:20 | XMS_ITS | Patient Health Summary ---
Author Organization [facility] Address [address] [place] [address] Care Team Providers Care Corner Trimmer Operator Name Role Phone Unavailable Primary Care Provider Unavailabl e Note from [facility],non-owned Affiliates and Associated Physician Practices is amultiple site organization consisting of ambulatory clinics and hospital sitesin [place], [place], [place] and [place]. This disclosure is being madepursuant to the Care Everywhere program and may not contain all information available regarding this patient. Last updated 18.[facility] Allergies No known active allergies Medications * Be aware that medications may not be up to date on this document. Alwaysverify current medications with the patient. * Naproxen Sodium (ALEVE PO) Take 250 mg by mouth 2 times daily as needed (Pain) * polyethylene glycol 3350 (MIRALAX) packet Take by mouth once daily as needed for Constipation Active Problems Problem Noted Date Diagnosed Date Transaminitis 10/24/2019 Cholelithiasis 10/24/2019 Elevated liver enzymes 09/28/2019 Social History Tobacco Use Types Packs/Day Years Used Date Smoking Tobacco: Never Smokeless Tobacco: Never Alcohol Use Standard Drinks/Week Comments Never 0 (1 standard drink = 0.6 oz pur e alcohol) AUDIT-C Answer Date Recorded Frequency of Alcohol Consumption Never 09/28/2019 Average Number of Drinks Not on file 019 Frequency of Binge Drinking Not on file 09/10 Overall Financial Resource Strain (CARDIA) Answe r Date Recorded Difficulty of Paying Living Expenses Not hard at all 09/28/2019 Hunger Vital Sign Answer Date Recorded Worried About Running Out of Food in the Last Ye ar Never true 09/28/2019 Ran Out of Food in the Last Year Never true 09/28/2019 PRAPARE - Transportation Answer Date Re corded Lack of Transportation (Medical) No 09/28/2019 Lack of Transportation (Non-Medical) No 09/28/2019 Sex and Gender Information Value Date Recorded Sex Assigned at Not on file Gender Identity Not on file Sexual Orientation Not on file Last Filed Vital Signs Vital Sign Reading Time Taken Comments Blood Pressure 114/70 11/01/2019 8:21 AM ENERGY AUDIT ADVISOR Pulse 80 11/01/2019 8:21 AM ENERGY AUDIT ADVISOR Temperature 37 C (98.6 F) 11/01/2019 8:21 AM ENERGY AUDIT ADVISOR Respiratory Rate 22 11/01/2019 8:21 AM ENERGY AUDIT ADVISOR Oxygen Saturation 95% 11/01/2019 8:21 AM ENERGY AUDIT ADVISOR Inhaled Oxygen Concentration - - Weight 80.2 kg (176 lb 12.9 oz) 020 10:21 AM ENERGY AUDIT ADVISOR Height 154.5 cm (5' 0.83 ) 10/31/2019 1 0:21 AM ENERGY AUDIT ADVISOR Body Mass Index 33.6 10/31/2019 10:21 AM ENERGY AUDIT ADVISOR Procedures * PATHOLOGY TISSUE EXAM (STL)(Performed 10/31/2019) Performed for Abdominal pain, unspecified abdominal location * ENDOTRACHEAL TUBE NOTE(Performed 10/31/2019) * GA LAP,CHOLECYSTECTOMY(Performed 10/31/2019) Performed for Abdominal pain, unspecified abdominal location * HCG URINE QUAL POCT NOTIFICATION(Performed 10/31/2019) Performed for Elevated liver enzymes * HEPATIC FUNCTION PANEL(Performed 10/31/2019) Performed for Calculus of gallbladder without cholecystitis without obstruction * BASIC METABOLIC PANEL (CALCIUM TOTAL)(Performed 10/31/2019) Performed for Calculus of gallbladder without cholecystitis without obstruction * HCG URINE QUALITATIVE - POCT (IP) INTERFACED(Performed 10/31/2019) * PT PTT PANEL(Performed 10/25/2019) * GGT(Performed 10/25/2019) * HEPATIC FUNCTION PANEL(Performed 10/25/2019) * US ABDOMEN LIMITED(Performed 10/24/2019) Performed for Elevated liver enzymes * HCG URINE QUAL POCT NOTIFICATION(Performed 10/24/2019) * GGT(Performed 10/24/2019) * LIPASE BLOOD(Performed 10/24/2019) * CBC W AUTO DIFFERENTIAL(Performed 10/24/2019) * COMPREHENSIVE METABOLIC PANEL(Performed 10/24/2019) * HCG URINE QUALITATIVE - POCT (IP) INTERFACED(Performed 10/24/2019) * URINALYSIS W/MICROSCOPIC NO CULTURE(Performed 10/24/2019) * AMYLASE BLOOD(Performed 10/24/2019) * BILIRUBIN DIRECT(Performed 10/24/2019) * GGT(Performed 09/29/2019) * HEPATIC FUNCTION PANEL(Performed 09/29/2019) * US ABDOMEN LIMITED(Performed 09/28/2019) Performed for Elevated liver enzymes * CT OUTSIDE CONSULTATION(Performed 09/28/2019) Performed for Elevated liver enzymes * HEPATITIS SCREEN ACUTE(Performed 09/28/2019) * MICROSOMAL ANTIBODY LIVER/KIDNEY(Performed 09/28/2019) * SMOOTH MUSCLE ANTIBODY(Performed 09/28/2019) * EVITA-GALVEZ VIRUS ANTIBODY PANEL(Performed 09/28/2019) * CYTOMEGALOVIRUS ANTIBODY IGM BLOOD(Performed 09/28/2019) * LIPASE BLOOD(Performed 09/28/2019) * GGT(Performed 09/28/2019) * SYDNI BLOOD SCREEN W/REFLEX TITER(Performed 09/28/2019) * CYTOMEGALOVIRUS ANTIBODY IGG BLOOD(Performed 09/28/2019) * PT PTT PANEL(Performed 09/28/2019) * AMYLASE BLOOD(Performed 09/28/2019) * BILIRUBIN DIRECT(Performed 09/28/2019) * COMPREHENSIVE METABOLIC PANEL(Performed 09/28/2019) * CBC W AUTO DIFFERENTIAL(Performed 09/28/2019) Results * GROSS + MICRO EXAM (STL) (10/31/2019 2:12 PM ENERGY AUDIT ADVISOR) Case Report Surgical Pathology Report Case: [id number] Authorizing Provider: Carlos Ziegler MD Collected: 10/31/2019 02:12 PM Ordering Location: [facility] Received: 10/31/2019 02:29 PM Pathologist: Penelope Rosario MD Specimen: Gallbladder 11/01/2019 11:45 AM [facility] Final Diagnosis Gallbladder, cholecystectomy: - Chronic cholecystitis with cholelithiasis and cholesterolosis. 11/01/2019 11:45 AM [facility] Clinical History The patient is a 19-year-old girl with abdominal pain who underwent laparoscopic cholecystectomy. 11/01/2019 11:45 AM [facility] Gross Description Submitted fresh in one container for gross and microscopic examination labeled with the patient's name, Erwin Das, and gallbladder, is a 7.5 x 2.5 x 1 cm intact gallbladder with stapled cystic duct. The external surface is pink-lomax, smooth and glistening. The hepatic bed is rough. The gallbladder liberates red-orange bile and contains 29 yellow-green cholelith, each measuring approximately 0.4 cm in diameter. The mucosal surface is yellow-orange with lace-like cholesterosis. The gallbladder wall thickness is 0.2 cm. Dairy Farm Worker sections from the gallbladder and cystic duct are submitted in cassette A1. (CT/arm) 11/01/2019 11:45 AM [facility] Microscopic Description 1 H&E. Sections show gallbladder mucosa with increased chronic inflammatory infiltrate in the lamina propria and Rokitansky-Aschoff sinuses. Subepithelial lipid-laden macrophages are present. 11/01/2019 11:45 AM [facility] Disclaimer The performance characteristics of all immunohistochemical and indirect immunofluorescence stains (if any) cited in this report were determined by the Histopathology Laboratory of [facility] in compliance with Clinical Laboratory Improvement Amendments of 1988 (CLIA'88) regulations. Some of these tests rely on the use of analyte-specific reagents and are subject to specific labeling requirements by the U.S. Food and Drug Administration (FDA). Such tests were developed by the [facility] Laboratory of [facility] and have not been cleared or approved by the FDA. The FDA has determined that such clearance or approval is not necessary. These tests are used for clinical purposes and should not be regarded as investigational or for research. This case has been personally reviewed and interpreted by the attending (teaching) pathologist. 11/01/2019 11:45 AM [facility] Embedded Images 11/01/2019 11:45 AM [facility] Pathology/Cytology ENTIRE GALLBLADDER / Unknown 10/31/2019 2:12 PM ENERGY AUDIT ADVISOR 10/31/2019 2:29 PM ENERGY AUDIT ADVISOR Comment:Pre-op diagnosis: Abdominal pain, unspecified abdominal location [R10.9] Carlos Ziegler MD LAB - PATHOLOGY/CYT OLOGY ORDERABLES [facility] [address] [place] [address] * ETT LINE PERFORMABLE (10/31/2019 1:30 PM ENERGY AUDIT ADVISOR) Narrative Sabine Daniel Anes Asst - 10/31/2019 1:30 PM ENERGY AUDIT ADVISOR Sabine Daniel Anes Asst 10/31/2019 1:31 PM Endotracheal Tube Placement: Patient Location: OR. Intubation Event Date/Time: 10/31/2019 1:16 PM Procedure: intubation ([id number]). Procedure Section: Sedation: under general anesthesia. Indications for Airway Management: anesthesia Induction: standard IV Patient Position: supine Mask Ventilation: easy. Blade Type: Jose Carlos Blade Size: 3 Laryngoscopy View: grade 1 (full cords) Tube: endotracheal tube Placement: oral Tube type: cuff - inflated Tube Size (MM): 7 Depth of Insertion (CM): 21 Measured From: teeth Cuff volume (mL): 1 Cuff inflation pressure (CM H20): 20 Cuff Inflated With: air Number of Attempts: 1. Placement Verified By: direct visualization, bilateral breath sounds, chest auscultation and CO2 monitor Tube secured with: adhesive tape. Procedure Start Time: 10/31/2019 1:16 PM. Staff Section Anesthesia Provider: Chikis Pitts APRN-OIL DERRICK OPERATOR, Performed the procedure Yamilet Azul MD GENERAL ANESTHESIA O RDERABLES * HCG URINE QUAL POCT NOTIFICATION (10/31/2019 12:00 PM ENERGY AUDIT ADVISOR) Only the most recent of2 resultswithin the time period is included. Comment Notification Label Only - See Separate Report 10/31/2019 12:00 PM [facility] Urine URINE / Unknown 0 10:41 AM ENERGY AUDIT ADVISOR Carlos Ziegler MD LAB - URINALYSIS OR DERABLES Performing Organization Address City/State/[facility] Co de Phone Number [facility] [address] [place] [address] * (ABNORMAL) BASIC METABOLIC PANEL (CALCIUM TOTAL) (10/31/2019 11:54 AM ENERGY AUDIT ADVISOR) Glucose 88 70 - 105 mg/dL 10/31/2019 12:51 PM [facility] Sodium 141 136 - 145 mmol/L 10/31/2019 12:51 PM [facility] Potassium 4.0 3.5 - 5.1 mmol/L 10/31/2019 12:51 PM [facility] Chloride 108(H) 98 - 107 mmol/L 10/31/2019 12:51 PM [facility] CO2 25 20 - 28 mmol/L 10/31/2019 12:51 PM [facility] Calcium 9.22 9.08 - 10.48 mg/dL 10/31/2019 12:51 PM [facility] Anion Gap 8 5 - 20 mmol/L 10/31/2019 12:51 PM [facility] BUN 9.0 5.3 - 18.7 mg/dL 10/31/2019 12:51 PM [facility] Creatinine 0.67 0.61 - 1.07 mg/dL 10/31/2019 12:51 PM [facility] eGFR by MDRD 10/31/2019 12:51 PM [facility] Comment: eGFR calculations are not performed for children under 18 years old. eGFR by MDRD 10/31/2019 12:51 PM [facility] Comment: eGFR calculations are not performed for children under 18 years old. Blood BLOOD SPECIMEN / Unknown Venipuncture / Unknown 10/31/2019 11:54 AM ENERGY AUDIT ADVISOR 10/31/2019 12:25 PM [facility] Veronica Traore MD LAB - CHEMISTRY ORDE SUSHANT [facility] Organization Address City/State/[facility] Co de Phone Number [facility] [place] [address] * (ABNORMAL) HEPATIC FUNCTION PANEL (10/31/2019 11:54 AM [facility]) Only the most recent of3 resultswithin the time period is included. Alkaline Phosphatase 88(L) 100 - 390 U/L 10/31/2019 12:57 PM [facility] ALT 98(H) 8 - 65 U/L 10/31/2019 12:57 PM [facility] AST 26 3 - 35 U/L 10/31/2019 12:57 PM [facility] Protein Total 6.9 6.3 - 8.2 gm/dL 10/31/2019 12:57 PM [facility] Albumin 4.2 3.3 - 4.9 gm/dL 10/31/2019 12:57 PM [facility] Bilirubin Total 0.7 0.3 - 1.2 mg/dL 10/31/2019 12:57 PM [facility] Bilirubin Direct 0.36 0.11 - 0.64 mg/dL 10/31/2019 12:57 PM [facility] Blood BLOOD SPECIMEN / Unknown Venipuncture / Unknown 10/31/2019 11:54 AM ENERGY AUDIT ADVISOR 10/31/2019 12:28 PM ENERGY AUDIT ADVISOR Veronica Traore MD LAB - CHEMISTRY POLLO CANCHOLA Performing Organization Address City/[facility]/ZIP Co de Phone Number [facility] [address] [place] [phone] * HCG URINE QUALITATIVE - POCT (IP) INTERFACED (10/31/2019 10:47 AM ENERGY AUDIT ADVISOR) Only the most recent of2 resultswithin the time period is included. HCG Qual Urine Negative Negative 10/31/2019 10:54 AM [facility] Urine URINE / Unknown 10/31/2019 1 0:47 AM ENERGY AUDIT ADVISOR 10/31/2019 10:54 AM ENERGY AUDIT ADVISOR Carlos Ziegler MD LAB - POINT OF CARE ORDERABLES Performing Organization Address [facility] Co de Phone Number [facility] [address] [place] [phone] * PT PTT PANEL (10/25/2019 5:50 AM ENERGY AUDIT ADVISOR) Only the most recent of2 resultswithin the time period is included. PT 10.8 9.5 - 11.6 sec 10/25/2019 6:28 AM [facility] INR 1.0 0.9 - 1.1 10/25/2019 6:28 AM [facility] PTT 25.1 21.0 - 32.0 sec 10/25/2019 6:28 AM [facility] Blood BLOOD SPECIMEN / Unknown Lab Venipuncture / Unknown 10/25/2019 5:50 AM ENERGY AUDIT ADVISOR 10/25/2019 5:55 AM ENERGY AUDIT ADVISOR Narrative [facility] - 10/25/2019 6:28 AM ENERGY AUDIT ADVISOR Conventional Warfarin Anticoagulant Therapy: INR Reference Range: 2.0-3.0 Intensive Warfarin Anticoagulant Therapy: INR Reference Range: 2.5-3.5 Heparin Therapeutic Range for PTT: 50.5 - 74.3 seconds. Cesar Perez MD LAB - COAGUL ATION ORDERABLES Performing Organization Address [facility] Co de Phone Number [facility] [address] [place] [address] * (ABNORMAL) GGT (10/25/2019 5:50 AM ENERGY AUDIT ADVISOR) Only the most recent of4 resultswithin the time period is included. GGT 339(H) 8 - 69 U/L 10/25/2019 6:25 AM ENERGY AUDIT ADVISOR [facility] Blood BLOOD SPECIMEN / Unknown Lab Venipuncture / Unknown 10/25/2019 5:50 AM ENERGY AUDIT ADVISOR 10/25/2019 5:55 AM ENERGY AUDIT ADVISOR Cesar Perez MD LAB - CHEMIS TRY ORDERABLES Performing Organization Address [facility] de Phone Number [facility] [address] [place] [phone] * US ABDOMEN LIMITED (10/24/2019 12:59 PM ENERGY AUDIT ADVISOR) Only the most recent of2 resultswithin the time period is included. Anatomical Region Laterality Modality Abdomen Ultrasound 10/24/2019 1:05 PM ENERGY AUDIT ADVISOR Impressions 10/24/2019 1:12 PM ENERGY AUDIT ADVISOR Stable appearance of small gall bladder stones. No evidence of gall bladder inflammation. Reading Radiologist: Maurisio Dale MD on 10/24/2019 at 1:12 PM Narrative 10/24/2019 1:12 PM ENERGY AUDIT ADVISOR INDICATION: Right upper quadrant abdominal pain COMPARISON: 09/28/2019 TECHNIQUE: Lyle scale ultrasound imaging of the abdomen right upper quadrant per department protocol. FINDINGS: Liver: The liver is normal in size and echotexture. No intrahepatic biliary ductal dilation is seen. Portal venous flow is hepatopetal. Gallbladder: There is similar appearance of small echogenic foci in the dependent part of the gallbladder. No gall bladder wall thickening. No hyperemia on color Doppler imaging. Mild dilation of the common bile duct is similar to prior. Pancreas: The echotexture of the head and body are normal; the tail is obscured by bowel contents. No ductal dilation or peripancreatic fluid is seen. Other: No fluid or mass is present. Procedure Note Maurisio Dale MD - 10/24/2019 INDICATION: Right upper quadrant abdominal pain COMPARISON: 09/28/2019 TECHNIQUE: Lyle scale ultrasound imaging of the abdomen right upper quadrant per department protocol. FINDINGS: Liver: The liver is normal in size and echotexture. No intrahepatic biliary ductal dilation is seen. Portal venous flow is hepatopetal. Gallbladder: There is similar appearance of small echogenic foci in the dependent part of the gallbladder. No gall bladder wall thickening. No hyperemia on color Doppler imaging. Mild dilation of the common bile duct is similar to prior. Pancreas: The echotexture of the head and body are normal; the tail is obscured by bowel contents. No ductal dilation or peripancreatic fluid is seen. Other: No fluid or mass is present. IMPRESSION Stable appearance of small gall bladder stones. No evidence of gall bladder inflammation. Reading Radiologist: Maurisio Dale MD on 10/24/2019 at 1:12 PM Jamal Rader DO US ORDERABLES * (ABNORMAL) CBC W AUTO DIFFERENTIAL (10/24/2019 10:12 AM [facility]) Only the most recent of2 resultswithin the time period is included. WBC 6.8 4.5 - 11.0 x10E9/L 10/24/2019 10:20 AM [facility] WBC Corrected 10/24/2019 10:20 AM [facility] RBC 5.35(H) 4.10 - 5.10 x10E12/L 10/24/2019 10:20 AM [facility] Hemoglobin 14.6 12.0 - 16.0 gm/dL 10/24/2019 10:20 AM [facility] Hematocrit 44.6 36.0 - 47.0 % 10/24/2019 10:20 AM [facility] MCV 83.4 78.0 - 98.0 fl 10/24/2019 10:20 AM [facility] MCH 27.3 25.0 - 35.0 pg 10/24/2019 10:20 AM [facility] MCHC 32.7 31.0 - 37.0 gm/dL 10/24/2019 10:20 AM [facility] Platelet Count 305 100 - 400 x10E9/L 10/24/2019 10:20 AM [facility] RDW-CV 12.1 11.5 - 14.0 % 10/24/2019 10:20 AM [facility] MPV 10.4(H) 6.0 - 9.5 fl 10/24/2019 10:20 AM [facility] Neutrophils % 68.5 31.0 - 78.0 % 10/24/2019 10:20 AM [facility] Lymphocytes % 20.3 13.0 - 54.0 % 10/24/2019 10:20 AM [facility] Monocytes % 8.7 4.0 - 13.0 % 10/24/2019 10:20 AM [facility] Eosinophils % 1.6 0.0 - 8.0 % 10/24/2019 10:20 AM [facility] Basophils % 0.6 % 10/24/2019 10:20 AM [facility] Immature Granulocytes 0.3 % 10/24/2019 10:20 AM [facility] Neutrophil Absolute 4.66 1.4 - 8.58 x10E9/L 10/24/2019 10:20 AM [facility] Lymphocytes Absolute 1.38 0.59 - 5.94 x10E9/L 10/24/2019 10:20 AM [facility] Monocytes Absolute 0.59 0.18 - 1.43 x10E9/L 10/24/2019 10:20 AM [facility] Eosinophils Absolute 0.11 0 - 0.88 x10E9/L 10/24/2019 10:20 AM [facility] Basophils Absolute 0.04 0 - 0.22 x10E9/L 10/24/2019 10:20 AM [facility] Immature Granulocytes Absolute 0.02 0 - 0.11 x10E9/L 10/24/2019 10:20 AM [facility] nRBC Auto 0 /100 WBC 10/24/2019 10:20 AM [facility] Blood BLOOD SPECIMEN / Unknown Lab Venipuncture / Unknown 10/24/2019 10:12 AM ENERGY AUDIT ADVISOR 10/24/2019 10:14 AM [facility] Jamal Edward Prasanth DO LAB - HEMATOLOG Y ORDERABLES [facility] [place] [address] * (ABNORMAL) COMPREHENSIVE METABOLIC PANEL (10/24/2019 10:12 AM [facility]) Only the most recent of2 resultswithin the time period is included. Glucose 108(H) 70 - 105 mg/dL 10/24/2019 10:38 AM [facility] Sodium 139 136 - 145 mmol/L 10/24/2019 10:38 AM [facility] Potassium 4.0 3.5 - 5.1 mmol/L 10/24/2019 10:38 AM [facility] Chloride 105 98 - 107 mmol/L 10/24/2019 10:38 AM [facility] CO2 24 20 - 28 mmol/L 10/24/2019 10:38 AM [facility] Calcium 9.41 9.08 - 10.48 mg/dL 10/24/2019 10:38 AM [facility] Anion Gap 10 5 - 20 mmol/L 10/24/2019 10:38 AM [facility] BUN 10.3 5.3 - 18.7 mg/dL 10/24/2019 10:38 AM [facility] Creatinine 0.62 0.61 - 1.07 mg/dL 10/24/2019 10:38 AM [facility] Alkaline Phosphatase 135 100 - 390 U/L 10/24/2019 10:38 AM [facility] ALT 499(H) 8 - 65 U/L 10/24/2019 10:38 AM [facility] AST 810(H) 3 - 35 U/L 10/24/2019 10:38 AM [facility] Protein Total 7.2 6.3 - 8.2 gm/dL 10/24/2019 10:38 AM [facility] Albumin 4.5 3.3 - 4.9 gm/dL 10/24/2019 10:38 AM [facility] Bilirubin Total 2.0(H) 0.3 - 1.2 mg/dL 10/24/2019 10:38 AM [facility] eGFR by MDRD 10/24/2019 10:38 AM [facility] Comment: eGFR calculations are not performed for children under 18 years old. eGFR by MDRD 10/24/2019 10:38 AM [facility] Comment: eGFR calculations are not performed for children under 18 years old. Blood BLOOD SPECIMEN / Unknown Lab Venipuncture / Unknown 10/24/2019 10:12 AM ENERGY AUDIT ADVISOR 10/24/2019 10:14 AM ENERGY AUDIT ADVISOR [employer] LAB - CHEMISTRY ORDERABLES Performing Organization Address [facility]/ZIP Co de Phone Number [facility] [address] [place] [address] * LIPASE BLOOD (10/24/2019 10:12 AM ENERGY AUDIT ADVISOR) Only the most recent of2 resultswithin the time period is included. Lipase 25 10 - 220 U/L 10/24/2019 10:45 AM [facility] Blood BLOOD SPECIMEN / Unknown Lab Venipuncture / Unknown 10/24/2019 10:12 AM ENERGY AUDIT ADVISOR 10/24/2019 10:14 AM ENERGY AUDIT ADVISOR [employer] LAB - CHEMISTRY ORDERABLES Performing Organization Address [facility] de Phone Number [facility] [address] [place] [phone] * (ABNORMAL) URINALYSIS W/MICROSCOPIC NO CULTURE (10/24/2019 9:49 AM ENERGY AUDIT ADVISOR) Color UA Luz Marina(A) Straw, Yellow 10/24/2019 10:06 AM [facility] Clarity UA Slt Cloudy(A) Clear 10/24/2019 10:06 AM [facility] Glucose UA Negative Negative 10/24/2019 10:06 AM [facility] Bilirubin UA Negative Negative 10/24/2019 10:06 AM [facility] Ketone UA Trace(A) Negative 10/24/2019 10:06 AM [facility] Specific [place] UA 1.020 1.005 - 1.030 10/24/2019 10:06 AM [facility] Blood UA Negative Negative 10/24/2019 10:06 AM [facility] pH UA 7.0 5.0 - 8.0 pH 10/24/2019 10:06 AM [facility] Protein UA 1+(A) Negative 10/24/2019 10:06 AM [facility] Urobilinogen UA 4.0(A) Negative mg/dL 10/24/2019 10:06 AM [facility] Nitrite UA Negative Negative 10/24/2019 10:06 AM [facility] Leukocyte UA Negative Negative 10/24/2019 10:06 AM [facility] RBC UA 0-2 None Seen, 0-2, 3-5 # /hpf 10/24/2019 10:06 AM [facility] WBC UA 0-5 None Seen, 0-5 # /hpf 10/24/2019 10:06 AM [facility] Bacteria UA None Seen None Seen 10/24/2019 10:06 AM [facility] Squamous Epithelial Cells 11-20(A) None Seen, 0-2, 3-5 /hpf 10/24/2019 10:06 AM [facility] Mucus UA 1+ /LPF 10/24/2019 10:06 AM [facility] Urine URINE SPECIMEN OBTAINED BY CLEAN CATCH PROCEDURE / Unknown Collection / Unknown 10/24/2019 9:49 AM ENERGY AUDIT ADVISOR 10/24/2019 9:58 AM ENERGY AUDIT ADVISOR Narrative [facility] - 10/24/2019 10:06 AM ENERGY AUDIT ADVISOR Jamal Rader DO LAB - URINALYSI S ORDERABLES Performing Organization Address [facility] Co de Phone Number [facility] [address] [place] [address] * (ABNORMAL) BILIRUBIN DIRECT (10/24/2019 9:41 AM ENERGY AUDIT ADVISOR) Only the most recent of2 resultswithin the time period is included. Bilirubin Direct 1.55(H) 0.11 - 0.64 mg/dL 10/24/2019 1:52 PM [facility] Blood BLOOD SPECIMEN / Unknown Lab Venipuncture / Unknown 10/24/2019 9:41 AM ENERGY AUDIT ADVISOR 10/24/2019 1:36 PM ENERGY AUDIT ADVISOR Jesse Meehan MD LAB - CHEMISTRY POLLO CANCHOLA Performing Organization Address [facility]/ZIP Co de Phone Number [facility] [address] [place] [address] * AMYLASE BLOOD (10/24/2019 9:41 AM ENERGY AUDIT ADVISOR) Only the most recent of2 resultswithin the time period is included. Amylase 61 5 - 65 U/L 10/24/2019 1:52 PM ENERGY AUDIT ADVISOR [facility] Blood BLOOD SPECIMEN / Unknown Lab Venipuncture / Unknown 10/24/2019 9:41 AM ENERGY AUDIT ADVISOR 10/24/2019 1:36 PM ENERGY AUDIT ADVISOR Jesse Meehan MD LAB - CHEMISTRY POLLO CANCHOLA [facility] [address] [place] [address] * CT OUTSIDE CONSULTATION (09/28/2019 7:20 AM ENERGY AUDIT ADVISOR) Anatomical Region Laterality Modality Computed Tomogra phy 09/28/2019 8:02 AM ENERGY AUDIT ADVISOR Impressions 09/28/2019 11:30 AM ENERGY AUDIT ADVISOR 1. Nonspecific common bile duct dilatation measuring 0.8 cm, without visible obstructing lesion or stone. 2. Normal appearance of the gallbladder, without evidence of acute cholecystitis. A right upper quadrant ultrasound or MRI/MRCP could be performed for further evaluation if clinically indicated. Dictated by Issac Chowdhury on 09/28/2019 9:12 AM I, Lauren Becerra, have personally reviewed the images and I agree with this report. Reading Radiologist: Lauren Becerra MD on 09/28/2019 at 11:30 AM Narrative 09/28/2019 11:30 AM ENERGY AUDIT ADVISOR INDICATION: 19-year-old female with two-day history of abdominal pain and emesis. Elevated liver function enzymes and total bilirubin. COMPARISON: None available. TECHNIQUE: CT of the abdomen and pelvis with intravenous contrast from [place] performed on 09/27/2019. The report was not available for review at the time of this dictation. FINDINGS: Chest: The lung bases are clear. Hepatobiliary: There is mild geographic hypodensity the anterior lateral left hepatic. Otherwise normal liver size and attenuation. No gallbladder calculus or gallbladder wall thickening. There is dilation of the common bile duct up to 0.8 cm (series 601B, image 56; series 3, image 58), which tapers inferiorly to the level of the duodenum. No obstructive mass or calculus is identified. No substantial intrahepatic biliary ductal dilatation is seen. Pancreas: Normal without peripancreatic fluid collection. No pancreatic ductal dilation is seen. Spleen: Normal attenuation without mass. A small splenule is noted at the anterior aspect. Adrenal glands: Normal in morphology without mass lesion. : Normal appearance of the kidneys with symmetric parenchymal enhancement. No bladder or deep pelvic soft tissue abnormality is seen. The uterus is present. A right ovarian cyst measures 3 cm in size and slightly above simple fluid attenuation consistent with hemorrhagic cyst, and is almost certainly benign. GI: No obstruction or abnormal bowel wall thickening. The appendix is normal in appearance. Vascular: The aorta and inferior vena cava are normal. Other: No free air or abnormal fluid collection. Bones: The bones are normal. Procedure Note Lauren Becerra MD - 09/28/2019 INDICATION: 19-year-old female with two-day history of abdominal pain and emesis. Elevated liver function enzymes and total bilirubin. COMPARISON: None available. TECHNIQUE: CT of the abdomen and pelvis with intravenous contrast from [place] performed on 09/27/2019. The report was not available for review at the time of this dictation. FINDINGS: Chest: The lung bases are clear. Hepatobiliary: There is mild geographic hypodensity the anterior lateral left hepatic. Otherwise normal liver size and attenuation. No gallbladder calculus or gallbladder wall thickening. There is dilation of the common bile duct up to 0.8 cm (series 601B, image 56; series 3, image 58), which tapers inferiorly to the level of the duodenum. No obstructive mass or calculus is identified. No substantial intrahepatic biliary ductal dilatation is seen. Pancreas: Normal without peripancreatic fluid collection. No pancreatic ductal dilation is seen. Spleen: Normal attenuation without mass. A small splenule is noted at the anterior aspect. Adrenal glands: Normal in morphology without mass lesion. : Normal appearance of the kidneys with symmetric parenchymal enhancement. No bladder or deep pelvic soft tissue abnormality is seen. The uterus is present. A right ovarian cyst measures 3 cm in size and slightly above simple fluid attenuation consistent with hemorrhagic cyst, and is almost certainly benign. GI: No obstruction or abnormal bowel wall thickening. The appendix is normal in appearance. Vascular: The aorta and inferior vena cava are normal. Other: No free air or abnormal fluid collection. Bones: The bones are normal. IMPRESSION 1. Nonspecific common bile duct dilatation measuring 0.8 cm, without visible obstructing lesion or stone. 2. Normal appearance of the gallbladder, without evidence of acute cholecystitis. A right upper quadrant ultrasound or MRI/MRCP could be performed for further evaluation if clinically indicated. Dictated by Issac Chowdhury on 09/28/2019 9:12 AM I, Lauren Becerra, have personally reviewed the images and I agree with this report. Reading Radiologist: Lauren Becerra MD on 09/28/2019 at 11:30 AM Nithya Ybarra DO CT ORDERABLES * CYTOMEGALOVIRUS ANTIBODY IGM BLOOD (09/28/2019 6:34 AM ENERGY AUDIT ADVISOR) Pathologist [facility] Cytomegalovirus Antibody IgM <30.0 0.0 - 29.9 AU/mL 09/29/2019 8:11 AM ENERGY AUDIT ADVISOR [facility] ([facility]) Comment: Negative <30.0 Equivocal 30.0 - 34.9 Positive >34.9 A positive result is generally indicative of acute infection, reactivation or persistent IgM production. Blood BLOOD SPECIMEN / Unknown Lab Venipuncture / Unknown 09/28/2019 6:34 AM ENERGY AUDIT ADVISOR 09/28/2019 6:39 AM ENERGY AUDIT ADVISOR Narrative [facility] ([facility]) - 09/29/2019 8:11 AM ENERGY AUDIT ADVISOR Performed at: - [address] [id number] Dental Insurance Coordinator: Miguel Anderson PhD, Phone: [phone] Chikis English DO LAB - CHEMISTRY ORD ERABLES [facility] ([facility]) [address] [place] [address] * MICROSOMAL ANTIBODY LIVER/KIDNEY (09/28/2019 6:34 AM ENERGY AUDIT ADVISOR) [facility] Liver-Kidney Microsomal Antibody 1.3 0.0 - 20.0 Units 09/29/2019 3:08 PM ENERGY AUDIT ADVISOR [facility] ([facility]) Comment: Negative 0.0 - 20.0 Equivocal 20.1 - 24.9 Positive >24.9 LKM type 1 antibodies are detected in patients with autoimmune hepatitis type 2 and in up to 8% of patients with chronic HCV infection. Blood BLOOD SPECIMEN / Unknown Lab Venipuncture / Unknown 09/28/2019 6:34 AM ENERGY AUDIT ADVISOR 09/28/2019 6:39 AM ENERGY AUDIT ADVISOR N[facility]ative [facility] - 09/29/2019 3:08 PM ENERGY AUDIT ADVISOR Performed at: [address] [place] [id number] Dental Insurance Coordinator: Miguel Anderson PhD, Phone: [phone] Chikis English DO LAB - CHEMISTRY ORD ERABLES [facility] ([facility]) [address] [place] [address] * (ABNORMAL) EVITA-GALVEZ VIRUS PANEL (09/28/2019 6:34 AM ENERGY AUDIT ADVISOR) Pathologist [facility] Evita-Galvez Viral Capsid Antigen Antibody IgM <36.0 0.0 - 35.9 U/mL 09/29/2019 2:09 PM [facility] ([facility]) Comment: Negative <36.0 Equivocal 36.0 - 43.9 Positive >43.9 Evita-Galvez Virus Early Antigen Antibody IgG <9.0 0.0 - 8.9 U/mL 09/29/2019 2:09 PM [facility]) Comment: Negative < 9.0 Equivocal 9.0 - 10.9 Positive >10.9 Evita-Galvez Viral Capsid Antigen Antibody IgG 45.9(H) 0.0 - 17.9 U/mL 09/29/2019 2:09 PM [facility]) Comment: Negative <18.0 Equivocal 18.0 - 21.9 Positive >21.9 Evita-Galvez Virus Antibody IgG Nuclear Antigen <18.0 0.0 - 17.9 U/mL 09/29/2019 2:09 PM [facility] ([facility]) Comment: Negative <18.0 Equivocal 18.0 - 21.9 Positive >21.9 Interpretation Comment 09/29/2019 2:09 PM [facility]) Comment: EBV Interpretation Chart Interpretation EBV-IgM EA(D)-IgG VCA-IgG EBNA-IgG EBV Seronegative - - - - Early Phase + - - - Acute Primary + +or- + - Infection Convalescence/Past - +or- + + Infection Reactivated +or- +or- + + Infection + Antibody Present - Antibody Absent Effective October 16, 2019, [id number] EBV Acute Infection Antibodies and [id number] EBV, Chronic/Active Infection will be made non-orderable. [facility] offers order code [id number] EBV Antibody Profile. Blood BLOOD SPECIMEN / Unknown Lab Venipuncture / Unknown 09/28/2019 6:34 AM ENERGY AUDIT ADVISOR 09/28/2019 6:39 AM ENERGY AUDIT ADVISOR Narrative [facility] ([facility]) - 09/29/2019 2:09 PM ENERGY AUDIT ADVISOR Performed at: - [address] [id number] Dental Insurance Coordinator: Miguel Anderson PhD, Phone: [phone] Chikis English DO LAB - CHEMISTRY ORD ERABLES Performing Organization Address [facility] de Phone Number [facility] ([facility]) [address] [place] [address] * SMOOTH MUSCLE ANTIBODY (09/28/2019 6:34 AM ENERGY AUDIT ADVISOR) Actin (Smooth Muscle) Antibody 18 0 - 19 Units 09/29/2019 3:08 PM ENERGY AUDIT ADVISOR [facility] ([facility]) Comment: Negative 0 - 19 Weak positive 20 - 30 Moderate to strong positive >30 Actin Antibodies are found in 52-85% of patients with autoimmune hepatitis or chronic active hepatitis and in 22% of patients with primary biliary cirrhosis. Blood BLOOD SPECIMEN / Unknown Lab Venipuncture / Unknown 09/28/2019 6:34 AM ENERGY AUDIT ADVISOR 09/28/2019 6:39 AM ENERGY AUDIT ADVISOR Narrative [facility] ([facility]) - 09/29/2019 3:08 PM ENERGY AUDIT ADVISOR Performed at: [address] [id number] Dental Insurance Coordinator: Miguel Anderson PhD, Phone: [phone] Chikis English DO LAB - SEROLOGY ORDE RABLES Performing Organization Address [facility] de Phone Number [facility] [address] [place] [address] * HEPATITIS SCREEN ACUTE (09/28/2019 6:34 AM ENERGY AUDIT ADVISOR) Pathologist [facility] HAV Antibody IgM Non Reactive Non Reactive 09/28/2019 11:13 AM ENERGY AUDIT ADVISOR [facility] HBsAg Non Reactive Non Reactive 09/28/2019 11:13 AM ENERGY AUDIT ADVISOR [facility] HBc Antibody IgM Non Reactive Non Reactive 09/28/2019 11:13 AM ENERGY AUDIT ADVISOR [facility] HCV Antibody Screen Non Reactive Non Reactive 09/28/2019 11:13 AM ENERGY AUDIT ADVISOR [facility] Blood BLOOD SPECIMEN / Unknown Lab Venipuncture / Unknown 09/28/2019 6:34 AM ENERGY AUDIT ADVISOR 09/28/2019 7:15 AM ENERGY AUDIT ADVISOR Narrative [facility] - 09/28/2019 11:13 AM ENERGY AUDIT ADVISOR Non Reactive - Antibodies to Hepatitis C virus (HCV) were not detected, result does not exclude early acute HCV infection. Chikis English DO LAB - CHEMISTRY ORD ERABLES Performing Organization Address [facility] de Phone Number [facility] [address] [place] [address] * (ABNORMAL) CYTOMEGALOVIRUS ANTIBODY IGG BLOOD (09/28/2019 6:33 AM ENERGY AUDIT ADVISOR) Pathologist [facility] Cytomegalovirus Antibody IgG 4.90(H) 0.00 - 0.59 U/mL 09/29/2019 8:11 AM ENERGY AUDIT ADVISOR [facility] ([facility]) Comment: Negative <0.60 Equivocal 0.60 - 0.69 Positive >0.69 Blood BLOOD SPECIMEN / Unknown Lab Venipuncture / Unknown 09/28/2019 6:33 AM ENERGY AUDIT ADVISOR 09/28/2019 6:40 AM ENERGY AUDIT ADVISOR Narrative [facility] ([facility]) - 09/29/2019 8:11 AM ENERGY AUDIT ADVISOR Performed at: 01 - [facility] [address] [place], [place] [id number] Dental Insurance Coordinator: Miguel Anderson PhD, Phone: [phone] Chikis English DO LAB - CHEMISTRY ORD ERABLES Performing Organization Address City/[facility]/ZIP Co de Phone Number [facility] ([facility]) [address] [place] [address] * SYDNI BLOOD SCREEN W/REFLEX TITER (09/28/2019 6:33 AM ENERGY AUDIT ADVISOR) SYDNI Negative Negative 09/29/2019 11:26 AM ENERGY AUDIT ADVISOR [facility] Blood BLOOD SPECIMEN / Unknown Lab Venipuncture / Unknown 09/28/2019 6:33 AM ENERGY AUDIT ADVISOR 09/28/2019 7:42 AM ENERGY AUDIT ADVISOR Narrative [facility] - 09/29/2019 11:26 AM ENERGY AUDIT ADVISOR Methodology: Indirect Immunofluorescence Assay (IFA) utilizing Hep-2-Gamma cells. Chikis English DO LAB - CHEMISTRY ORD ERABLES [facility] [address] [place] [address]
--- OUTSIDE RECORDS SUMMARY | 2024-12-06 15:20 | XMS_ITS | Referral Summary ---
Author Organization [facility] Address [address] [address] Care Team Providers Care Liquor Bridge Operator Name Role Phone Unavailable Primary Care Provider Unavailabl e Source Comments [facility],non-owned Affiliates and Associated Physician Practices is amultiple site organization consisting of ambulatory clinics and hospital sitesin [place], [place]. This disclosure is being madepursuant to the Care Everywhere program and may not contain all information available regarding this patient. Last updated 18.[facility] [employer] Allergies No known active allergies Medications * Be aware that medications may not be up to date on this document. Alwaysverify current medications with the patient. Medication Sig Dispensed Refills Start Date End Date Status Naproxen Sodium (ALEVE PO) Take 250 mg by mouth 2 times daily as needed (Pain) Active polyethylene glycol 3350 (MIRALAX) packet Take by mouth once daily as needed for Constipation Active Active Problems Problem Noted Date Diagnosed Date Transaminitis 10/24/2019 Cholelithiasis 10/24/2019 Assessment & Plan (10/25/2019 12:58 PM NETWORK CABLER): Assessment: Patient diagnosed with gallstones in September 2019. Pain described as identical to that episode. No pain with meals. RUQ pain with belt like distribution to back. NBNB emesis x2. No alcohol use. Patient's mom had her gallbladder removed as well. Patient's pain has substantially decreased today. Plan: - NPO - Talk to surgery team. If they cannot do cholecystectomy this week, she will be transitioned to regular diet and given PO tylenol as needed for pain. If surgery team can fit her on the OR schedule this week, will determine diet status based on their schedule - Toradol q6h prn moderate pain - D5NS IVF at 100 mL/hr - Start Miralax BID Assessment & Plan (10/24/2019 9:46 PM NETWORK CABLER): Assessment: Patient diagnosed with gallstones in September 2019. Pain described as identical to that episode. No pain with meals. RUQ pain with belt like distribution to back. NBNB emesis x2. No alcohol use. Patient's mom had her gallbladder removed as well. Plan: - Admit to GI, Dr. Venita Verma - NPO - Follow up Hepatic function panel, and PT PTT panel - Toradol q6h prn moderate pain - D5NS IVF at 100 mL/hr Elevated liver enzymes 09/28/2019 Assessment & Plan (09/28/2019 5:25 AM NETWORK CABLER): 19 yo previously healthy female who presents for epigastric and RUQ abdominal pain as well as emesis. No fever or jaundice. The labs showed transaminitis, and CT showed mildly dilated bile duct, so hepatitis and bile duct obstruction are one the differential. Patient is otherwise hemodynamically stable. Plan: Admit to GI service, Dr. Verma Obtain D-bili and GGT results VS q8hr NPO MIVF IV Nexium 40 mg daily IV toradol, morphine prn Obtain AM labs: CBC, BMP, HPF, GGT, Amylase/Lipase, PT/INR EBV PCR, CMV, Anti-LKM, Anti-SM, SYDNI Acute Hepatitis panel Imaging: Abdominal U/S AM OSH CT consultation Consider consult biliary team consult for possible ERCP Social History Tobacco Use Types Packs/Day Years [...] Comments Blood Pressure 114/70 11/01/2019 8:21 AM NETWORK CABLER Pulse 80 11/01/2019 8:21 AM NETWORK CABLER Temperature 37 C (98.6 F) 11/01/2019 8:21 AM NETWORK CABLER Respiratory Rate 22 11/01/2019 8:21 AM NETWORK CABLER Oxygen Saturation 95% 11/01/2019 8:21 AM NETWORK CABLER Inhaled Oxygen Concentration - - Weight 80.2 kg (176 lb 12.9 oz) 020 10:21 AM NETWORK CABLER Height 154.5 cm (5' 0.83 ) 10/31/2019 1 0:21 AM NETWORK CABLER Body Mass Index 33.6 10/31/2019 10:21 AM NETWORK CABLER Functional Status Functional Status Response Date of Assess ment Is person deaf or have serious hearing difficult y? No 10/24/2019 Is person blind or have serious difficulty seein g? No 10/24/2019 Does person have serious dif ficulty walking/climbing stairs? No 10/24/2019 Does person have difficulty dressing/bathing? No 10/24/2019 Does person have difficulty doing errands alone? No 10/24/2019 Cognitive Status Response Date of Assessm ent Does person have difficulty concentrating/remembering/making decisions? No 10/24/2019 Plan of Treatment Not on file Procedures Procedure Name Priority Date/Time Associated Diagnosis Comments HEPATITIS SCREEN ACUTE STAT 09/28/2019 6:34 AM NETWORK CABLER from Last 3 Months or Most Recently Relevant to Health Maintenance Results * HEPATITIS SCREEN ACUTE (09/28/2019 6:34 AM NETWORK CABLER) HAV Antibody IgM Non Reactive Non Reactive 09/28/2019 11:[address] [facility] HBsAg Non Reactive Non Reactive 09/28/2019 11:[address] [facility] HBc Antibody IgM Non Reactive Non Reactive 09/28/2019 11:[address] [facility] HCV Antibody Screen Non Reactive Non Reactive 09/28/2019 11:[address] [facility] Blood BLOOD SPECIMEN / Unknown Lab Venipuncture / Unknown 09/28/2019 6:34 AM NETWORK CABLER 09/28/2019 7:15 AM NETWORK CABLER Narrative [facility] - 09/28/2019 11:13 AM NETWORK CABLER Non Reactive - Antibodies to Hepatitis C virus (HCV) were not detected, result does not exclude early acute HCV infection. Chikis English DO LAB - CHEMISTRY ORD ERABLES [facility] [address] [place] [address] from Last 3 Months or Most Recently Relevant to Health Maintenance Advance Directives * Full Code (Latest Code Status on File) Date Activated Date Inactivated Comments 10/31/2019 3:35 PM 11/01/2019 12:49 PM * Full Code Date Activated Date Inactivated Comments 10/24/2019 4:00 PM 10/25/2019 6:35 PM * Full Code Date Activated Date Inactivated Comments 09/28/2019 5:18 AM 09/29/2019 1:52 PM
--- OUTSIDE RECORDS SUMMARY | 2024-12-06 15:20 | XMS_ITS | Clinical Summary ---
Author Organization [facility] Address [address] [place] [address] Care Team Providers Care Health And Safety Coordinator Name Role Phone Unavailable Primary Care Provider Unavailabl e Source Comments [facility],non-owned Affiliates and Associated Physician Practices is amultiple site organization consisting of ambulatory clinics and hospital sitesin [place], [place], [place] and [place]. This disclosure is being madepursuant to the Care Everywhere program and may not contain all information available regarding this patient. Last updated 18.[facility] Allergies No known active allergies Medications * [...] 10/24/2019 Assessment & Plan (10/25/2019 12:58 PM DRY ICE MACHINE OPERATOR): Assessment: Patient diagnosed with gallstones in September [...] BID Assessment & Plan (10/24/2019 9:46 PM DRY ICE MACHINE OPERATOR): Assessment: Patient diagnosed with gallstones in September [...] 09/28/2019 Assessment & Plan (09/28/2019 5:25 AM DRY ICE MACHINE OPERATOR): 19 yo previously healthy female who presents [...] consult biliary team consult for possible ERCP Family History Medical History Relation Name Comments Hypertension Father Diabetes - Type 2 Mother Other - Gastrointestinal Mother gal l stones Relation Name Status Comments Father Mother Alive Social History Tobacco Use Types Packs/Day Years [...] Comments Blood Pressure 114/70 11/01/2019 8:21 AM DRY ICE MACHINE OPERATOR Pulse 80 11/01/2019 8:21 AM DRY ICE MACHINE OPERATOR Temperature 37 C (98.6 F) 11/01/2019 8:21 AM DRY ICE MACHINE OPERATOR Respiratory Rate 22 11/01/2019 8:21 AM DRY ICE MACHINE OPERATOR Oxygen Saturation 95% 11/01/2019 8:21 AM DRY ICE MACHINE OPERATOR Inhaled Oxygen Concentration - - Weight 80.2 kg (176 lb 12.9 oz) 020 10:21 AM DRY ICE MACHINE OPERATOR Height 154.5 cm (5' 0.83 ) 10/31/2019 1 0:21 AM DRY ICE MACHINE OPERATOR Body Mass Index 33.6 10/31/2019 10:21 AM DRY ICE MACHINE OPERATOR Plan of Treatment Health Maintenance Due Date Last Done Comments PAP SMEAR 2002 HIV SCREENING 2017 HPV VACCINE (1 - 3-dose series) 2017 CHLAMYDIA/GONORRHEA SCREENING 2018 MENINGOCOCCAL (Group B) VACC INE (1 of 2 - Standard) 2018 DTAP/TDAP/TD VACCINES (1 - Tdap) 2021 HEPATITIS B VACCINE (1 of 3 - 19+ 3-dose series) 2021 COVID-19 VACCINE (1 - 2023-2 5 season) 2024 INFLUENZA VACCINE (#1) 2024 DEPRESSION SCREENING 10/11/2024 ZOSTER VACCINE (1 of 2) 01/04/2052 HEPATITIS C SCREENING Completed 09/28/2019 HIB VACCINE Aged Out No longer eligi ble based on patient's age to complete this topic MENINGOCOCCAL VACCINE Aged Out No alicia eve eligible based on patient's age to complete this topic PNEUMOCOCCAL VACCINE Aged Out No long er eligible based on patient's age to complete this topic Procedures Procedure Name Priority Date/Time Associated Diagnosis Comments HEPATITIS SCREEN ACUTE STAT 09/28/2019 6:34 AM DRY ICE MACHINE OPERATOR from Last 3 Months or Most Recently Relevant to Health Maintenance Results * HEPATITIS SCREEN ACUTE (09/28/2019 6:34 AM DRY ICE MACHINE OPERATOR) HAV Antibody IgM Non Reactive Non Reactive 09/28/2019 11:13 AM DRY ICE MACHINE OPERATOR [facility] HBsAg Non Reactive Non Reactive 09/28/2019 11:13 AM DRY ICE MACHINE OPERATOR [facility] HBc Antibody IgM Non Reactive Non Reactive 09/28/2019 11:13 AM DRY ICE MACHINE OPERATOR [facility] HCV Antibody Screen Non Reactive Non Reactive 09/28/2019 11:13 AM DRY ICE MACHINE OPERATOR [facility] Blood BLOOD SPECIMEN / Unknown Lab Venipuncture / Unknown 09/28/2019 6:34 AM DRY ICE MACHINE OPERATOR 09/28/2019 7:15 AM DRY ICE MACHINE OPERATOR Narrative [facility] - 09/28/2019 11:13 AM DRY ICE MACHINE OPERATOR Non Reactive - Antibodies to Hepatitis C virus (HCV) were not detected, result does not exclude early acute HCV infection. Chikis English DO LAB - CHEMISTRY ORD ERABLES Performing Organization Address City/State/[facility] Co de Phone Number [facility] [address] [place] [address] from Last 3 Months or Most Recently [...]
[2024-12-06 19:57] LABS: Hemoglobin A1C 4.7 % (<5.7)
[2024-12-08 14:28] LABS: Insulin Level Total 6.8 uIU/mL
== END 2024-12-06 13:36 | disposition home or self-care (01) ==
LOC: ANHLAB 13:36
PROVIDERS: PCP Family Medicine; Visit Provider Nurse Practitioner
DX: E28.2 Polycystic ovarian syndrome (principal)
CPT/HCPCS: 36415; 80053; 80061; 83036; 83525

== ENCOUNTER 2025-02-18 14:39 | Emergency (ER) | payer OTHER, SELFPAY ==
--- NOTE | ~2025-02-18 | CT_ITS ---
CT abdomen pelvis w con Ordering provider: Antia Hunt PA-C History: 25 years Female with . abd pain, vomiting . Comparison: February 18, 2024 Technique: CT abdomen and pelvis with IV and without oral contrast. Automated exposure control and it erative reconstruction technique were employed. The dose-length product was 278.97 mGy-cm. 100 mL Omn ipaque 350 was given IV. Findings: VISUALIZED LOWER CHEST: Normal. UPPER ABDOMINAL ORGANS: Liver: Hypodensity seen adjacent to the interlobar fissure most likely fat infiltration unchanged fro m previous examination Gallbladder: Status post cholecystectomy. Spleen: Normal. Stomach/duodenum: Normal. Pancreas: Normal. Adrenals: Normal. Kidneys: Normal. PELVIC ORGANS: The bladder is underfilled. 1.2 cm follicle is seen in the right ovary. Other small follicles are seen in the left ovary. BOWEL AND MESENTERY: Colon: No evidence of diverticulitis. Normal appendix. Small Bowel: Normal. No obstruction. Peritoneum/mesentery: No free air or free fluid. No mesenteric lymphadenopathy. RETROPERITONEUM: Normal aorta. No retroperitoneal lymphadenopathy. MUSCULOSKELETAL: Superficial soft tissues: Small fat-containing umbilical hernia. The superficial soft tissues are nor mal. Bones: Normal spine. IMPRESSION: 1. No evidence of appendicitis, diverticulitis or intestinal obstruction. Reviewed, dictated and finalized at location A.
[2025-02-18 14:42] VITALS: BP 125/84; PULSE 77; RESP 18; TEMP 36.6; O2SAT 99
--- OUTSIDE RECORDS SUMMARY | 2025-02-18 14:42 | XMS_ITS | Clinical Summary ---
Author Organization [facility] Address [address] [place] [address] Care Team Providers Care Director Of Valuation Name Role Phone Unavailable Primary Care Provider Unavailabl e Source Comments [facility],non-owned Affiliates and Associated Physician Practices is amultiple site organization consisting of ambulatory clinics and hospital sitesin [place], [place], [place] and [place]. This disclosure is being madepursuant to the Care Everywhere program and may not contain all information available regarding this patient. Last updated 18.[facility] Allergies No known active allergies Medications * Be aware that medications may not be up to date on this document. Alwaysverify current medications with the patient. Naproxen Sodium (ALEVE PO) Take 250 mg by mouth 2 times daily as needed (Pain) Active polyethylene glycol 3350 (MIRALAX) packet Take by mouth once daily as needed for Constipation Active Active Problems Problem Noted Date Diagnosed Date Transaminitis 10/24/2019 Cholelithiasis 10/24/2019 Assessment & Plan (10/25/2019 12:58 PM PRODUCER): Assessment: Patient diagnosed with gallstones in September [...] BID Assessment & Plan (10/24/2019 9:46 PM PRODUCER): Assessment: Patient diagnosed with gallstones in September [...] 09/28/2019 Assessment & Plan (09/28/2019 5:25 AM PRODUCER): 19 yo previously healthy female who presents [...] 09/28/2019 Lack of Transportation (Non-Medical) No 09/28/2019 Comments No Sex and Gender Information Value Date Recorded Sex Assigned at Not on file Legal Sex Female 12:27 AM PRODUCER Gender Identity Not on file Sexual Orientation Not on file Last Filed Vital Signs Vital Sign Reading Time Taken Comments Blood Pressure 114/70 11/01/2019 8:21 AM PRODUCER Pulse 80 11/01/2019 8:21 AM PRODUCER Temperature 37 C (98.6 F) 11/01/2019 8:21 AM PRODUCER Respiratory Rate 22 11/01/2019 8:21 AM PRODUCER Oxygen Saturation 95% 11/01/2019 8:21 AM PRODUCER Inhaled Oxygen Concentration - - Weight 80.2 kg (176 lb 12.9 oz) 020 10:21 AM PRODUCER Height 154.5 cm (5' 0.83 ) 10/31/2019 1 0:21 AM PRODUCER Body Mass Index 33.6 10/31/2019 10:21 AM PRODUCER Plan of Treatment Health Maintenance Due Date Last Done Comments HIV SCREENING 2017 HPV VACCINE (1 - 3-dose series) 2017 CHLAMYDIA/GONORRHEA SCREENING 2018 MENINGOCOCCAL (Group B) VACC INE SHARED DECISION-MAKING (1 of 2 - Standard) 2018 DTAP/TDAP/TD VACCINES (1 - Tdap) 2021 HEPATITIS B VACCINE (1 of 3 - 19+ 3-dose series) 2021 COVID-19 VACCINE (1 - 2023-2 5 season) 2024 DEPRESSION SCREENING 10/11/2024 INFLUENZA VACCINE (Season Ended) 2025 ZOSTER VACCINE (1 of 2) 01/04/2052 HEPATITIS C SCREENING Completed 09/28/2019 HIB VACCINE Aged Out No longer eligi ble based on patient's age to complete this topic MENINGOCOCCAL GROUPS A/C/Y/W VACCINE Aged Out No longer eligible b ased on patient's age to complete this topic PNEUMOCOCCAL VACCINE Aged Out No long er eligible based on patient's age to complete this topic Procedures Procedure Name Priority Date/Time Associated Diagnosis Comments HEPATITIS SCREEN ACUTE STAT 09/28/2019 6:34 AM PRODUCER from Last 3 Months or Most Recently Relevant to Health Maintenance Results * HEPATITIS SCREEN ACUTE (09/28/2019 6:34 AM PRODUCER) HAV Antibody IgM Non Reactive Non Reactive 09/28/2019 11:13 AM PRODUCER [facility] HBsAg Non Reactive Non Reactive 09/28/2019 11:13 AM PRODUCER [facility] HBc Antibody IgM Non Reactive Non Reactive 09/28/2019 11:13 AM PRODUCER [facility] HCV Antibody Screen Non Reactive Non Reactive 09/28/2019 11:13 AM [facility] Blood BLOOD SPECIMEN / Unknown Lab Venipuncture / Unknown 09/28/2019 6:34 AM PRODUCER 09/28/2019 7:15 AM PRODUCER Narrative [facility] - 09/28/2019 11:13 AM PRODUCER Non Reactive - Antibodies to Hepatitis C virus (HCV) were not detected, result does not exclude early acute HCV infection. Chikis English DO LAB - CHEMISTRY ORDERABLES Final Result Performing Organization Address City/State/[facility] Co de Phone Number [facility] [address] [place] [address] from Last 3 Months or Most Recently Relevant to Health Maintenance Insurance [employer] Debra [address]IR[address] [employer] Advance Directives * Full Code (Latest Code Status on File) Date Activated Date Inactivated Comments 10/31/2019 3:35 PM 11/01/2019 12:49 PM * Full Code Date Activated Date Inactivated Comments 10/24/2019 4:00 PM 10/25/2019 6:35 PM * Full Code Date Activated Date Inactivated Comments 09/28/2019 5:18 AM 09/29/2019 1:52 PM
--- OUTSIDE RECORDS SUMMARY | 2025-02-18 14:42 | XMS_ITS ---
Author Organization Unknown Medications Medication Instructions Effective Dates (start - stop) Status ondansetron 4 MG Disintegrat ing Oral Tablet - Completed duloxetine 30 MG Delayed Rel ease Oral Capsule - Completed sertraline 25 MG Oral Tablet [id number] 0:00:00Z - Completed citric acid 0.01 MG/MG [...]
--- OUTSIDE RECORDS SUMMARY | 2025-02-18 15:01 | XMS_ITS ---
Author Organization Unknown Medications Medication Instructions Effective Dates (start - stop) Status ondansetron 4 MG Disintegrat ing Oral Tablet - Completed duloxetine 30 MG Delayed Rel ease Oral Capsule - Completed sertraline 25 MG Oral Tablet [id number] 0:00:00Z - Completed citric acid 0.01 MG/MG [...]
[2025-02-18 15:15] LABS: Basophils Absolute Auto 0.1 K/mm3 (0.0-0.1); Basophils Percent Auto 0.8 % (0.2-1.2); Eosinophils Absolute Auto 0.1 K/mm3 (0-0.3); Eosinophils Percent Auto 1.7 % (0-4.4); Hematocrit 45.8 % (37.0-47.0); Hemoglobin 14.9 g/dL (12.0-15.0); Immature Granulocyte Absolute 0.02 K/mm3 (0.00-0.031); Immature Granulocyte Percent A 0.3 % (0-0.5); Lymphocytes Absolute Auto 1.93 K/mm3 (0.9-3.2); Mean Corpuscular HGB Conc 32.5 g/dl (32-36); Mean Corpuscular Hemoglobin 27.7 pg (26-34); Mean Corpuscular Volume 85.3 fl (80-100); Mean Platelet Volume 10.1 fl (7.4-10.4); Monocytes Absolute Auto 0.5 K/mm3 (0.1-0.6); Monocytes Percent Auto 6.9 % (2.6-8.5); Neutrophils Percent Auto 65.3 % (45.5-73.1); Platelet Count Result 326 k/mm3 (150-375); Red Blood Count 5.37 M/mm3 (4.2-5.4); Red Cell Distribution Width 12.1 % (11.5-14.5); White Blood Count 7.7 K/mm3 (4.5-10.0)
[2025-02-18 15:15] LABS: BEDSIDEPREGUCG Negative (Negative)
--- NOTE | 2025-02-18 15:20 | ED_ITS ---
HPI - Abdominal Pain General Chief Complaint: Abdominal Pain Stated Complaint: R side abd pain, N/V, chills Time Seen by Provider: 02/18/25 14:47 Source: patient Mode of arrival: ambulatory Limitations: no limitations History of Present Illness HPI narrative: This is a 25 year old female that presents to the ER for nausea, vomiting, and diarrhea. Ongoing over the last 5 days. Reports she has not been able to keep much down. Denies fevers Related Data Home Medications ?Medication ?Instructions ?Recorded ?Confirmed ?Last Taken ?Type duloxetine 30 mg capsule,delayed 30 mg PO DAILY 10/01/23 01/23/25 Unknown History release spironolactone 100 mg tablet 100 mg PO DAILY 06/27/24 01/23/25 Unknown History Allergies Allergy/AdvReac Type Severity Reaction Status Date / Time No Known Allergies Allergy Verified 02/18/25 14:40 Review of Systems 2 Review of Systems: CONSTITUTIONAL: Denies fever GASTROINTESTINAL: Reports abdominal pain, nausea, vomiting, and diarrhea. All systems reviewed & are unremarkable except as noted in HPI and below PMFSH Past Medical History Medical History Acute cholecystitis due to biliary calculus Anxiety Depression Left wrist fracture Seasonal allergies Surgical History Surgical History History of cholecystectomy History of tonsillectomy Family History Family History Other Asthma Cancer Diabetes mellitus Hypertension Social History Social History Social History: Single Smoking status: Never smoker Second hand tobacco smoke exposure: No Alcohol intake: never Substance use: current Substance use type: marijuana Do You Feel Safe in your Home?: Yes Lack of Transportation: No Lack of Food: Never True Current Housing: I Have Housing Concerned About Future Housing: No Difficulty Paying Gas/Electric Bills: No Difficulty Paying for Meds: No Currently Unemployed: YES Education: Decline to Answer Difficulty w/ Childcare or Family Care: No Living arrangements: with family Occupation/Education: student Gender identity (if verbalized by the patient): Female Sexual Orientation (if Verbalized by the Patient): Straight or Heterosexual Exam 2 Narrative: GENERAL: Well-appearing, well-nourished, and in no acute distress. HEAD: Normocephalic, atraumatic. EYES: EOMI. CHEST: Clear to auscultation. No respiratory distress. No wheezes rales or rhonchi HEART: Regular rate and rhythm. No murmur heard. Normal peripheral pulses. ABDOMEN: Soft, nondistended, normal active bowel sounds. Mild tenderness to palpation in the epigastrium, without guarding EXTREMITIES: Normal range of motion. No edema. SKIN: Warm, dry, no rash. NEURO: No focal deficits. Alert and oriented x3. PSYCH: Normal mood and affect Course Course Emergency Course: patient updated on workup and agrees with plan of care Vital Signs Vital signs: Vital Signs Temperature 97.9 F 02/18/25 14:42 Pulse Rate 77 02/18/25 14:42 Respiratory Rate 18 02/18/25 14:42 Blood Pressure 125/84 02/18/25 14:42 Pulse Oximetry 99 02/18/25 14:42 Oxygen Delivery Room Air 02/18/25 14:42 Temperature 97.9 F 02/18/25 14:42 Pulse Rate 71 02/18/25 15:52 Respiratory Rate 16 02/18/25 15:52 Blood Pressure 100/59 L 02/18/25 15:52 Pulse Oximetry 100 02/18/25 15:52 Oxygen Delivery Room Air 02/18/25 14:42 MDM - Abdominal Pain MDM Narrative Medical decision making narrative: Patient presents emergency department for abdominal pain, nausea vomiting. She is afebrile and nontoxic appearing. Her vitals are stable. Cbc without leukocytosis. Metabolic panel some evidence of dehydration. Patient was hydrated with 2 L of IV fluids. Urine with evidence of infection. This will be sent for culture. CT abdomen pelvis without acute findings. patient updated on workup and agrees with plan of care. She is to follow up with PCP. Will be started on oral antibiotics. She was given warnings to return to the ER Differential Diagnosis Differential diagnosis: Likely calculus of kidney, diverticulitis, gastroenteritis, pancreatitis and other (GERD, UTI, gastritis) Lab Data Attestation: I reviewed the patient's lab results. 02/18/25 15:07 02/18/25 15:07 Labs: Lab Results 02/18/25 02/18/25 Range/Units 15:07 15:12 WBC 7.7 (4.5-10.0) K/mm3 RBC 5.37 (4.2-5.4) M/mm3 Hgb 14.9 (12.0-15.0) g/dL Hct 45.8 (37.0-47.0) % MCV 85.3 (80-100) fl MCH 27.7 (26-34) pg MCHC 32.5 (32-36) g/dl RDW 12.1 (11.5-14.5) % Plt Count 326 (150-375) k/mm3 MPV 10.1 (7.4-10.4) fl Immature Gran % (Auto) 0.3 (0-0.5) % Neut % (Auto) 65.3 (45.5-73.1) % Lymph % (Auto) 25.0 (18.3-44.2) % [place] % (Auto) 6.9 (2.6-8.5) % Eos % (Auto) 1.7 (0-4.4) % Baso % (Auto) 0.8 (0.2-1.2) % Lymph # (Auto) 1.93 (0.9-3.2) K/mm3 [place] # (Auto) 0.5 (0.1-0.6) K/mm3 Eos # (Auto) 0.1 (0-0.3) K/mm3 Baso # (Auto) 0.1 (0.0-0.1) K/mm3 Abs Immat Gran (auto) 0.02 (0.00-0.031) K/mm3 Absolute Neuts (auto) 5.0 (1.3-6.7) K/mm3 Absolute Nucleated RBC 0.000 (0.0-0.012) K/mm3 Nucleated RBC % 0.0 (0.0-0.2) % Sodium 141 (137-145) mmol/L Potassium 3.9 (3.4-5.0) mmol/L Chloride 106 (98-107) mmol/L Carbon Dioxide 21 L (22-30) mmol/L Anion Gap 14 H (4-12) mmol/L BUN 12 (7-17) mg/dL Creatinine 0.75 (0.7-1.0) mg/dL Estim Creat Clear Calc 87 ml/min Estimated GFR > 60 (59 - ) Glucose 94 (65-110) mg/dL Calcium 9.7 (8.4-10.2) mg/dL Total Bilirubin 1.1 (0.2-1.3) mg/dL AST 29 (14-36) U/L ALT 19 (6-35) U/L Alkaline Phosphatase 67 (38-126) U/L Total Protein 8.0 (6.3-8.2) g/dL Albumin 4.8 (3.5-5.1) g/dL Lipase 82 (23-300) U/L Urine Color Dark yellow (Yellow) Urine Appearance Turbid H (Clear) Urine pH 5.5 (5.0-9.0) Ur Specific [place] 1.034 (1.001-1.035) Urine Protein 1+ H (Negative) mg/dL Urine Glucose (UA) Negative (Negative) mg/dL Urine Ketones 2+ H (Negative) mg/dL Ur Blood (Man) Negative (Negative) Urine Nitrate Negative (Negative) Urine Bilirubin 2+ H (Negative) Urine Urobilinogen 1.0 (<2.0) mg/dL Add Ur Microanalysis Reviewed Leukocyte Esterase Rfl Trace H (Negative) WALLY/UL Urine RBC 51-100 H (0-2) /hpf Urine WBC 21-50 H (0-3) /hpf Ur Squamous Epith Cells Moderate (Few) /hpf Urine Bacteria 4+ H /hpf Urine Casts >20 Hyaline Casts Present (None) /lpf Urine Mucus Present /lpf POC Urine HCG, Qual Negative (Negative) Imaging Data Radiologist's impression: ITS Impressions Abdomen/Pelvis CT 02/18/25 17:26 IMPRESSION: 1. No evidence of appendicitis, diverticulitis or intestinal obstruction. Critical Care Time Critical Care Time Critical Care Time: No Discharge Plan Discharge Clinical Impression: Acute UTI, Dehydration Patient Disposition: Home Condition: Stable Instructions: Antibiotic Form, Dehydration (ED), Urinary Tract Infection in Women (ED), Abdominal Pain (ED) Additional Instructions: Return to the ER if you experience fever, abdominal pain with nausea and vomiting, you are unable to keep down liquids or solids, or any other symptoms that are concerning to you Small, frequent meals. Brigantine diet. Remain well hydrated. Ondansetron as needed for nausea. Take oral antibiotic as prescribed Follow up with primary care doctor Patient Language: Bahraini Prescriptions: New ondansetron 4 mg tablet,disintegrating 4 mg PO Q8H PRN (Reason: nausea and vomiting) Qty: 14 0RF nitrofurantoin macrocrystal 100 mg capsule 100 mg PO Q12H 5 Days Qty: 10 0RF Rx Instructions: must administer with a meal/food No Action duloxetine 30 mg capsule,delayed release(DR/EC) 30 mg PO DAILY spironolactone 100 mg tablet 100 mg PO DAILY dextroamphetamine-amphetamine [Adderall] 10 mg tablet 10 mg PO DAILY Qty: 30 0RF Follow-up/Referrals: Mayco Blair MD [Primary Care Provider] -
[2025-02-18 15:25] LABS: Alanine Aminotransferase 19 U/L (6-35); Albumin Level 4.8 g/dL (3.5-5.1); Alkaline Phosphatase 67 U/L (38-126); Anion Gap 14 mmol/L (4-12); Aspartate Amino Transferase 29 U/L (14-36); Bilirubin,Total 1.1 mg/dL (0.2-1.3); Blood Urea Nitrogen 12 mg/dL (7-17); Calcium 9.7 mg/dL (8.4-10.2); Carbon Dioxide 21 mmol/L (22-30); Chloride 106 mmol/L (98-107); Estimated CRCL calculation 87 ml/min; Estimated Glomerular Filt Rate > 60; Glucose 94 mg/dL (65-110); Lipase 82 U/L (23-300); Potassium 3.9 mmol/L (3.4-5.0); Sodium 141 mmol/L (137-145)
[2025-02-18 15:27] LABS: Add Urine Microscopic? YES; Appearance Urine Turbid (Clear); Bacteria Urine 4+ /hpf; Bilirubin Urine 2+ (Negative); Blood Urine Negative (Negative); Color Urine Dark Yellow (Yellow); Glucose Urine UA Negative (Negative); Hyaline Casts Urine Present /lpf; Ketones Urine 2+ mg/dL (Negative); Leukocyte Esterase Ur Trace LEU/UL (Negative); Mucus Urine Present /lpf; Need Manual Microscopic Reviewed; Nitrate Urine Negative (Negative); Non Pathogenic Casts >20; Protein Urine 1+ mg/dL (Negative); RBC Urine 51-100 /hpf (0-2); Specific Grav Ur 1.034 (1.001-1.035); Squamous Epithelial Cell Urine Moderate /hpf (Few); WBC Urine 21-50 /hpf (0-3); pH Urine 5.5 (5.0-9.0)
[2025-02-18] MEDS: ONDANSETRON INJ 4 MG/2 ML VIAL IV PUSH (15:41)
[2025-02-18] MEDS: SODIUM CHLORIDE 0.9% IV 1,000 ML 999 ML IV CONT ×2 (15:41)
[2025-02-18] MEDS: FAMOTIDINE 20 MG/2 ML VIAL IV PUSH (15:41)
[2025-02-18 15:52] VITALS: BP 100/59; PULSE 71; RESP 16; O2SAT 100
[2025-02-18 18:35] VITALS: BP 109/67; PULSE 82; RESP 16; TEMP 36.7; O2SAT 98
== END 2025-02-18 18:37 | disposition home or self-care (01) ==
PROVIDERS: Emergency Provider Physician Assistant; PCP Family Medicine
DX: N39.0 Urinary tract infection, site not specified (principal); E86.0 Dehydration
CPT/HCPCS: 36415; 74177; 80053; 81001; 81025; 83690; 85025; 96361; 96374; 96375; 99284; J2405; J7030; Q9967

== ENCOUNTER 2025-05-31 14:53 | Outpatient (CLI) | payer OTHER, SELFPAY ==
--- OUTSIDE RECORDS SUMMARY | 2025-05-31 15:00 | XMS_ITS | Clinical Summary ---
Author Organization [facility] Address [address] [place] [address] Care Team Providers Care Director Immunology Name Role Phone Unavailable Primary Care Provider Unavailabl e Source Comments [facility],non-owned Affiliates and Associated Physician Practices is amultiple site organization consisting of ambulatory clinics and hospital sitesin [place], [place], [place]. This disclosure is being madepursuant to the Care Everywhere program and may not contain all information available regarding this patient. Last updated 18.[facility] Booster Allergies No known active allergies Medications * [...] 10/24/2019 Assessment & Plan (10/25/2019 12:58 PM UPSTAIRS MAID): Assessment: Patient diagnosed with gallstones in September [...] BID Assessment & Plan (10/24/2019 9:46 PM UPSTAIRS MAID): Assessment: Patient diagnosed with gallstones in September [...] 09/28/2019 Assessment & Plan (09/28/2019 5:25 AM UPSTAIRS MAID): 19 yo previously healthy female who presents [...] on file Legal Sex Female 12:27 AM UPSTAIRS MAID Gender Identity Not on file Sexual Orientation Not on file Last Filed Vital Signs Vital Sign Reading Time Taken Comments Blood Pressure 114/70 11/01/2019 8:21 AM UPSTAIRS MAID Pulse 80 11/01/2019 8:21 AM UPSTAIRS MAID Temperature 37 C (98.6 F) 11/01/2019 8:21 AM UPSTAIRS MAID Respiratory Rate 22 11/01/2019 8:21 AM UPSTAIRS MAID Oxygen Saturation 95% 11/01/2019 8:21 AM UPSTAIRS MAID Inhaled Oxygen Concentration - - Weight 80.2 kg (176 lb 12.9 oz) 020 10:21 AM UPSTAIRS MAID Height 154.5 cm (5' 0.83) 10/31/2019 1 0:21 AM UPSTAIRS MAID Body Mass Index 33.6 10/31/2019 10:21 AM UPSTAIRS MAID Plan of Treatment Health Maintenance Due Date [...] season) 2024 DEPRESSION SCREENING 10/11/2024 INFLUENZA VACCINE (#1) 2025 ZOSTER VACCINE (1 of 2) 01/04/2052 [...] HEPATITIS SCREEN ACUTE STAT 09/28/2019 6:34 AM UPSTAIRS MAID from Last 3 Months or Most Recently Relevant to Health Maintenance Results * HEPATITIS SCREEN ACUTE (09/28/2019 6:34 AM UPSTAIRS MAID) HAV Antibody IgM Non Reactive Non Reactive 09/28/2019 11:13 AM UPSTAIRS MAID [facility] HBsAg Non Reactive Non Reactive 09/28/2019 11:13 AM UPSTAIRS MAID [facility] HBc Antibody IgM Non Reactive Non Reactive 09/28/2019 11:13 AM UPSTAIRS MAID [facility] HCV Antibody Screen Non Reactive Non Reactive 09/28/2019 11:13 AM [facility] Blood BLOOD SPECIMEN / Unknown Lab Venipuncture / Unknown 09/28/2019 6:34 AM UPSTAIRS MAID 09/28/2019 7:15 AM UPSTAIRS MAID Narrative [facility] - 09/28/2019 11:13 AM UPSTAIRS MAID Non Reactive - Antibodies to Hepatitis C virus (HCV) were not detected, result does not exclude early acute HCV infection. Chikis English DO LAB - CHEMISTRY ORDERABLES Final Result Performing Organization Address City/State/[facility] Co de Phone Number [facility] [address] [place] [address] from Last 3 Months or Most Recently Relevant to Health Maintenance Insurance [employer] Debra [address] [facility] [place] Address: [facility] [id number] [place] [address] Advance Directives * Full Code (Latest Code Status on File) Date Activated Date Inactivated Comments 10/31/2019 3:35 PM 11/01/2019 12:49 PM * Full Code Date Activated Date Inactivated Comments 10/24/2019 4:00 PM 10/25/2019 6:35 PM * Full Code Date Activated Date Inactivated Comments 09/28/2019 5:18 AM 09/29/2019 1:52 PM
[2025-05-31 15:51] LABS: Add Urine Microscopic? YES; Appearance Urine Cloudy (Clear); Glucose Urine UA Negative (Negative); Leukocyte Esterase Ur Trace LEU/UL (Negative); Need Manual Microscopic Reviewed; Nitrate Urine Negative (Negative); Non Pathogenic Casts 0-2; Specific Grav Ur 1.026 (1.001-1.035)
== END 2025-05-31 14:54 | disposition home or self-care (01) ==
LOC: ANHLAB 14:55
PROVIDERS: PCP Family Medicine
DX: R30.0 Dysuria (principal)
CPT/HCPCS: 81001